=== PATIENT | male | born 1985 | race Caucasian/White ===

== ENCOUNTER 2017-03-12 14:20 | Inpatient (IN) | payer OTHER ==
[~2017-03-12] VITALS: Ht 170.2 cm; Wt 86.2 kg
--- NOTE | 2017-03-12 16:30 | NUR ---
PRE ADMISSION Pt in intake. Pt stated came from rehab center. Pt alert and oriented to name, place, and time. Perrla. Respirations even and unlabored. Bilateral hand tremors noted. Pt appears disheveled. Pt with perspiration noted on head and shoulders are moist. Skin warm and moist to touch. VS wnl except P=118. MD made aware. Pt anxious and not able to sit still, rocking back and forth on chair. Pt with pressured speech noted. Explained unit rules to pt.
--- NOTE | 2017-03-12 16:34 | NUR ---
PRN Pt with ciwa=12. Pt observed sweating, mostlly on head and upper torso. Pt skin moist. Pt very restless , not able to stand still. Valium po prn per MD order given and tolerated well.
--- NOTE | 2017-03-12 16:34 | NUR ---
ADMISSION Pt in intake. Pt stated came from rehab center. Pt alert and oriented to name, place, and time. Perrla. Respirations even and unlabored. Bilateral hand tremors noted. Pt appears disheveled. Pt with perspiration noted on head and shoulders are moist. Skin warm and moist to touch. VS wnl except P=118. MD made aware. Pt anxious and not able to sit still, rocking back and forth on chair. Pt with pressured speech noted. Explained unit rules to pt. Pt states has had history of sz. Oriented pt to unit and room. Pt with allergies to Clindamycin, and morphine. Full code. Regular diet. cows=10 ciws=12. Pt was seen by MD. substance history: -percocet po 10/325mg bid x 1.5 years; last used 03/12/17 10/325mg -xanax po 4-6mg daily x12 years; last used 03/12/17 2mg - methamphetamine snorts 8 ball x2 daily x4 months; last used 03/12/17 half of 8 ball treatment hx - [facility] [place] - 3 weeks ago ( admitted for 3 days) - mery veliz 11/2016 medical : htn , copd, sz Addendum: 03/13/17 at 0804 by EDWINA ROBLES RN additional Skin clear.
--- NOTE | 2017-03-12 16:35 | NUR ---
PRN Pt very restless and anxious. Catapres po prn per MD order given and tolerated well.
[2017-03-12] MEDS ORDERED: SULF1TAB48 PO (17:04)
[2017-03-12] MEDS ORDERED: BECL8.7H NS (17:04)
[2017-03-12] MEDS ORDERED: GABA400C PO (17:04)
[2017-03-12] MEDS ORDERED: LORA-259 PO (17:04)
[2017-03-12] MEDS ORDERED: QUET200T PO (17:04)
[2017-03-12] MEDS ORDERED: DEXT-150 PO (17:04)
[2017-03-12] MEDS ORDERED: HYDR-3026 PO (17:09)
[2017-03-12] MEDS ORDERED: PROP20TA7 PO (17:09)
[2017-03-12] MEDS ORDERED: TOPI25TA PO (17:09)
[2017-03-12 17:32] LABS: *AMPHETAMINE, URINE POSITIVE (NEGATIVE); *BARBITURATE, URINE POSITIVE (NEGATIVE); *CANNABINOID, URINE NEGATIVE (NEGATIVE); *COCCAINE, URINE NEGATIVE (NEGATIVE); *OPIATE, URINE NEGATIVE (NEGATIVE); *PHENCYCLIDINE SCREEN,URINE NEGATIVE (NEGATIVE)
--- NOTE | 2017-03-12 17:35 | NUR ---
PRN EVAL Ciwa=7. Pt more redirectable and follows commands. Pt still slightly anxious. No distress noted at this time.
--- NOTE | 2017-03-12 19:15 | NUR ---
Start of shift note Received report from day shift nurse. Pt is a 31 yo male, A+Ox4, presenting to [facility] for Opiate/Benzo/Meth dependence. Pt has Allergies to Clindamycin and Morphine, is on Full Code status, and on Regular diet. Pt is on 5 day Ativan taper, tolerated well. No s/s of distress noted at this time. Respirations even and unlabored. Will continue to monitor.
[2017-03-12 19:58] LABS: BASOPHILS # (AUTO) 0.1 K/uL (0.0-8.0); BASOPHILS % (AUTO) 0.9 % (0.0-2.0); EOSINOPHILS # (AUTO) 0.4 K/uL (0.0-0.7); HEMATOCRIT 45.6 % (40-50); HEMOGLOBIN 15.1 G/DL (14.0-18.0); LYMPHOCYTES # (AUTO) 2.9 K/UL (0.8-4.8); LYMPHOCYTES % (AUTO) 34.6 % (20.5-51.5); MEAN CORPUSCULAR HEMOGLOBIN 29.3 UUG (27.0-31.0); MEAN CORPUSCULAR HGB CONC 33 g/dL (32.0-37.0); MEAN CORPUSCULAR VOLUME 88.1 FL (82.0-92.0); MONOCYTES # (AUTO) 0.7 K/UL (0.1-1.30); MONOCYTES % (AUTO) 8.5 % (0.0-11.0); NEUTROPHILS # (AUTO) 4.2 K/UL (1.8-8.9); PLATELET COUNT (AUTO) 274 K/UL (150-450); RED BLOOD CELL COUNT(AUTO) 5.17 MIL/UL (4.7-6.1); WHITE BLOOD COUNT (AUTO) 8.3 K/UL (4.0-11.2)
[2017-03-12 20:07] LABS: ETHANOL < 3 MG/DL (0-0)
[2017-03-12 20:11] VITALS: BP 110/62
[2017-03-12 20:11] LABS: ALANINE AMINOTRANSFERASE 22 U/L (16-63); ALKALINE PHOSPHATASE 95 U/L (50-136); ASPARTATE AMINOTRANSFERASE 14 U/L (15-37); BILIRUBIN,TOTAL 0.3 mg/dL (0.2-1.0); CARBON DIOXIDE 27 mmol/L (21-32); CHLORIDE 105 mmol/L (98-107); CREATININE 1.4 mg/dL (0.6-1.3); GLUCOSE 140 mg/dL (74-106); MAGNESIUM 2.4 mg/dL (1.8-2.4); POTASSIUM 3.4 mmol/L (3.5-5.1); TOTAL PROTEIN, SERUM 7.7 g/dL (6.4-8.2); UREA NITROGEN, BLOOD 16 mg/dL (7-18)
[2017-03-13 00:19] VITALS: BP 122/79
[2017-03-13 04:46] VITALS: BP 119/77
--- NOTE | 2017-03-13 06:51 | NUR ---
End of shift note Pt is a 31 yo male, A+Ox4, presenting to [facility] for Opiate/Benzo/Meth dependence. Pt has Allergies to Clindamycin and Morphine, is on Full Code status, and on Regular diet. Pt has HX of HTN, Seizure, and COPD. Pt is on 5 day Ativan taper, tolerated well. Pt slept for a total of 11 HRS. Last COWS: 4 and Last CIWA: 3 @0400. No s/s of distress noted at this time. Respirations even and unlabored. Will endorse to day shift nurse.
--- NOTE | 2017-03-13 07:15 | NUR ---
Start of Shift Endorsement received from nightshift nurse. Pt is a 31 y/o male admitted for Percocet, Xanax and meth dependence. Pt has been placed on a 5 day Ativan taper and PRN Subutex taper. Pt reports Hx of seizures. Pt is tolerating the taper AEB COWS 4, CIWA 3 at 0400. Pt did not receive any PRN medications during caustic cresylate shift superintendent. Pt reports sleeping 11 hours and feels very rested. PT is alert and oriented x4. Pt is in STABLE condition at this time. Remains compliant with medication and diet regimen. All needs have been met, All safety measures in place per hospital policy. Bed in lowest position, side rails up x2, call-light within reach. Will continue to monitor
[2017-03-13 08:00] VITALS: BP 95/59
[2017-03-13 12:00] VITALS: BP 117/66
[2017-03-13 16:00] VITALS: BP 114/61
--- NOTE | 2017-03-13 19:30 | NUR ---
End of Shift Endorsement given to nightshift nurse. Pt is a 31 y/o male admitted for Percocet, Xanax and meth dependence. Pt has been placed on a 5 day Ativan taper and PRN Subutex taper. Pt reports Hx of seizures. Pt is tolerating the taper and moderately withdrawing AEB COWS 6, CIWA 9 at 1600. Pt did not receive any PRN medications during manager night. Pt did receive and one time dose of Zyprexa 5mg per Dr. Ybarra and one time dose of Ativan 2mg per Dr. Goodwin for severe anxiety and agitation. Pt did not participate in groups or activities. Pt has been placed on 1:1 due to increased agitation and safety reasons. Educated pt on diet regimen and encouraged pt to drink more fluids. Intake: 1355ml, Void x1, BM x0. PT is alert and oriented x4. Pt is in STABLE condition at this time. Remains compliant with medication and diet regimen. All needs have been met, All safety measures in place per hospital policy. Bed in lowest position, side rails up x2, call-light within reach. Will continue to monitor
--- NOTE | 2017-03-13 19:31 | NUR ---
Start of shift note Received report from day shift nurse. Pt is a 31 yo amle, A+OX4, presenting to [facility] for Opiate/Benzo/Methamphetamine dependence. Pt has Allergies to Clindamycin and Morphine. Pt is on 1:1 sitter for behavior/safety. Pt is on Fall and Seizure precautions. Pt has HX of HTN, and Seizure, and COPD. Pt is on 5 day Ativan taper, tolerated well. No s/s of distress noted at this time. Respirations even and unlabored. Will continue to monitor.
[2017-03-13 20:08] VITALS: BP 108/72
--- NOTE | 2017-03-13 21:18 | NUR ---
PRN Subutex 4mg Pt noted with COWS: 12. PRN Subutex given and tolerated well. Will reassess within 30 minutes. Will continue to monitor.
--- NOTE | 2017-03-13 21:37 | NUR ---
MD Communication: Dr Goodwin made aware that patient has been pacing the unit, non-compliant with room restriction, and noted to be agitated. Pt verbalizing wanting to leave AMA. Order received for Ativan 2mg PO x1. Order noted, repeated, and carried out.
--- NOTE | 2017-03-13 21:45 | NUR ---
PRN Subutex 4mg Reassessment Medication effective. COWS: 7. No ss/s of ASE/distress noted at this time. Respirations even and unlabored. Will continue to monitor.
--- NOTE | 2017-03-13 23:15 | NUR ---
MD Communication: Pt continues to display agitated behavior, noted to be pacing hallways and non-compliant with room restriction. upon assessment in patient's room, pt unable to sit still on bed and is labile with tangential thoughts. Dr Ybarra contacted and new order received for Haldol 5mg IM, Ativan 2mg IM, and Benadryl 50mg IM. Order noted, repeated and carried out.
[2017-03-14 00:16] VITALS: BP 102/64
[2017-03-14 04:43] VITALS: BP 101/62
--- NOTE | 2017-03-14 07:00 | NUR ---
End of shift note Pt is a 31 yo male, A+Ox4, presenting to [facility] for Opiate/Benzo/Meth dependence. Pt has Allergies to Clindamycin and Morphine, is on Full Code status, and on Regular diet. Pt has HX of HTN, Seizure, and COPD. Pt is on 5 day Ativan taper, tolerated well. Pt was given PRN Subutex 4mg @2118. Pt slept for a total of 7 HRS. Last COWS: 3 and Last CIWA: 3 @0400. No s/s of distress noted at this time. Respirations even and unlabored. Will endorse to day shift nurse.
--- NOTE | 2017-03-14 07:25 | NUR ---
Start of Shift Superintendent [employer] received report on 31 year old male admitted on 03/12/17 for Opiate, Benzodiazepine and Methamphetamine detoxification. Pt reports an allergy to Clinidmycin and Morphine. Pt eats a regular diet and is a full code. PMH of HTN, COPD, and a drug induced seizure 3 weeks ago. Pt is currently on a 5 day Ativan taper, with a Subutex taper to begin today, per report. Last COWS 3, CIWA 3 at 0400. Pt received Subutex PRN, as well as, OT orders of Ativan and Haldol(IM). Superintendent [employer] encounters pt in his room having blood drawn. Pt is cooperative. A/O x4 and able to make needs known. Remains on 1:1 staffing d/t irritability and aggression yesterday. Bed in low position, wheels locked, side rails up x2 and call light within reach.
--- NOTE | 2017-03-14 07:50 | NUR ---
NOC IM Non-Administration Per report, nurse received orders for medication and administered Haldol IM, pt slept and the Ativan and Benadryl were help d/t sedation.
[2017-03-14 08:06] VITALS: BP 106/74
[2017-03-14 08:08] LABS: HEPATITIS B SURFACE AG Negative (Negative)
[2017-03-14 08:14] LABS: CREATININE 0.9 mg/dL (0.6-1.3); MAGNESIUM 2.1 mg/dL (1.8-2.4); POTASSIUM 3.4 mmol/L (3.5-5.1)
[2017-03-14 12:55] VITALS: BP 99/61
--- NOTE | 2017-03-14 16:40 | NUR ---
MD Communication/1500 Meds Held Pt's scheduled 1500 medication held and not administered due to sedation. Pt has been somnolent with no complaints. Dr. Goodwin made aware.
[2017-03-14 16:55] VITALS: BP 113/79
--- NOTE | 2017-03-14 17:37 | NUR ---
OT Order - Ativan, Subutex ordered OT administration of Subutex to cover pt's held 1500 dose. Pt complains of increased anxiety due to the "aggressive" nature of the detoxification protocol. MD ordered 1mg additional to help with increased anxiety. Emergency Department Rn administered per MD order and pt tolerated well. Will continue to monitor, support and encourage according to plan of care.
--- NOTE | 2017-03-14 18:07 | NUR ---
OT Subutex Re-assessment Pt states he has less body aches. Pt is social and visible on the unit. Pt with no further complaints or concerns. Will continue to monitor, support and encourage according to plan of care.
--- NOTE | 2017-03-14 18:37 | NUR ---
OT Ativan Re-assessment Pt socializing with peers with no complaints voiced. Anxiety decreased, medication effective. Will continue to monitor, support and encourage according to plan of care.
--- NOTE | 2017-03-14 18:50 | NUR ---
End of Shift Motor Assembly Supervisor provided report on 31 year old male admitted on 03/12/17 for Opiate, Benzodiazepine and Methamphetamine detoxification. Pt reports an allergy to Clinidmycin and Morphine. Pt eats a regular diet and is a full code. PMH of HTN, COPD, and a drug induced seizure 3 weeks ago. Pt is currently on a 5 day Ativan taper and a Subutex taper. Last COWS 6, CIWA 5 at 1600. Pt received OT orders of Ativan ( 1mg ) and Subutex ( 4mg ). Pt has rested most of the day, lethargic at times, somnolent. Pt is cooperative. A/O x4 and able to make needs known. Bed in low position, wheels locked, side rails up x2 and call light within reach.
--- NOTE | 2017-03-14 19:55 | NUR ---
Start of shift: Received patient resting in bed. 31 yo male,presenting to [facility] for Opiate/Benzo/Methamphetamine dependence. Pt is alert,oriented x4. Afebrile and vital signs are stable except pulse is elevated @ 109 bpm. No c/o chest pain or pressure at this time. No signs of acute resp distress. Patient is on a Subutex/Ativan taper and tolerating well. No other concerns at this time. Will continue with current plan of care. Safety, seizure and fall precaution in progress. Bed is in the lowest position, side rails are up and call light within reach. Will continue to monitor.
[2017-03-14 20:14] VITALS: BP 122/85
[2017-03-15 04:32] VITALS: BP 102/62
--- NOTE | 2017-03-15 06:38 | NUR ---
End of shift Pt is a 31 yo male, A+Ox4, Patient admitted to [facility] for Opiate/Benzo/Meth dependence. Afebrile and vital signs are stable. Patient has been on Ativan/Subutex taper and tolerating well. Pt slept for a total of 5hrs and 45 minutes. Last COWS: 4 and Last CIWA: 3 @0400. No other concerns at this time All needs were met. Safety precaution maintained. No signs of distress noted at this time. Will endorse to oncoming shift to follow up care.
--- NOTE | 2017-03-15 07:25 | NUR ---
Start of Shift Habitat Conservation Planner received report on 31 year old male admitted on 03/12/17 for Opiate, Benzodiazepine and Methamphetamine detoxification. Pt reports an allergy to Clinidmycin and Morphine. Pt eats a regular diet and is a full code. PMH of HTN, COPD, and a drug induced seizure 3 weeks ago. Pt is currently on a 5 day Ativan and Subutex taper, tolerating well. Last COWS 4, CIWA 3 at 0400. Habitat Conservation Planner encounters pt in his room . Pt is cooperative. A/O x4 and able to make needs known. Pt has a flat affect and congruent mood.Bed in low position, wheels locked, side rails up x2 and call light within reach.
[2017-03-15 08:36] VITALS: BP 116/79
--- NOTE | 2017-03-15 10:58 | NUR ---
Therapist prompted client about group times. Client stated he would try to attend all groups.
[2017-03-15 12:30] VITALS: BP 122/71
[2017-03-15 16:30] VITALS: BP 115/72
--- NOTE | 2017-03-15 18:45 | NUR ---
End of Shift Trucking Supervisor provided report on 31 year old male admitted on 03/12/17 for Opiate, Benzodiazepine and Methamphetamine detoxification. Pt reports an allergy to Clinidmycin and Morphine. Pt eats a regular diet and is a full code. PMH of HTN, COPD, and a drug induced seizure 3 weeks ago. Pt is currently on a 5 day Ativan and Subutex taper, tolerating well. Last COWS 2, CIWA 2 at 1600. Pt is cooperative. A/O x4 and able to make needs known. Pt has a flat affect and congruent mood. Bed in low position, wheels locked, side rails up x2 and call light within reach.
--- NOTE | 2017-03-15 19:15 | NUR ---
Start of Shift Note: Patient is a 31 y/o male admitted on 03/12/17 for Opiate and Benzo dependence. Patient. PMHx: HTN, COPD and Seizure d/t withdrawal (3 weeks ago). Patient is on a regular diet with allergies to Clindamycin and Morphine. Full Code status. Pt is on a Ativan and Subutex taper and tolerating well. Last COWS 2 CIWA 2 noted. No PRN medications given during day shift. Patient is stable and vitals remains WNL. Patient is alert & oriented x4. No shortness of breath noted. Respiration even & unlabored. Abdomen soft & non-distended. No nausea/vomiting noted. Patient complains of 6/10 body aches. , sweating & chills. Patient denies any hallucinations. Patient appears calm and collected. Safety measures in place. Bed locked in lowest position. Both side rails up. Call light within pt's reach. Will continue to monitor patient.
[2017-03-15 20:00] VITALS: BP 113/71
--- NOTE | 2017-03-16 07:16 | NUR ---
End of Shift Note: Pt had an uneventful night. Pt continues on his Subutex and Ativan taper and he is tolerating well. Last COWS 4 CIWA 1. No PRN medications were given. Pt is alert & oriented x4. Pt remained stable and vitals remains WNL. Pt remained compliant with medications and treatment. All needs have been met. All safety measures in place per hospital policy. Bed in lowest position, side rails up x2, call-light within reach. Pt slept for a total of 7 hours. Pt consumed 1500 ml of fluids. Voided 2x with 1x bowel movement. All needs attended & met. Safety measures in place. Will continue to monitor patient.
--- NOTE | 2017-03-16 07:20 | NUR ---
Start of Shift Billet Checker received report on 31 year old male admitted on 03/12/17 for Opiate, Benzodiazepine and Methamphetamine detoxification. Pt reports an allergy to Clinidmycin and Morphine. Pt eats a regular diet and is a full code. PMH of HTN, COPD, and a drug induced seizure 3 weeks ago. Pt is currently on a 5 day Ativan and Subutex taper, tolerating well. Last COWS 4, CIWA 1 recorded by night nurse.. Billet Checker encounters pt in his room . Billet Checker encounters pt in room resting with eyes closed. Respiration even and unlabored, rise and fall of chest noted Bed in low position, wheels locked, side rails up x2 and call light within reach.
[2017-03-16 08:43] VITALS: BP 120/74
[2017-03-16 12:20] VITALS: BP 120/72
[2017-03-16 16:30] VITALS: BP 117/79
--- NOTE | 2017-03-16 18:52 | NUR ---
End of Shift Urology Teacher provided report on 31 year old male admitted on 03/12/17 for Opiate, Benzodiazepine and Methamphetamine detoxification. Pt reports an allergy to Clinidmycin and Morphine. Pt eats a regular diet and is a full code. PMH of HTN, COPD, and a drug induced seizure 3 weeks ago. Pt is currently on a 5 day Ativan and Subutex taper, tolerating well. Last COWS 3, CIWA 0 recorded at 1600.Pt is calm and cooperative and able to make his needs known. A/O x4. Pt has been somnolent and lethargic at times. Bed in low position, wheels locked, side rails up x2 and call light within reach.
--- NOTE | 2017-03-16 19:15 | NUR ---
Start of Shift Note: Patient is a 31 y/o male admitted on 03/12/17 for Opiate and Benzo dependence. Patient. PMHx: HTN, COPD and Seizure d/t withdrawal (3 weeks ago). Patient is on a regular diet with allergies to Clindamycin and Morphine. Full Code status. Pt is on a Ativan and Subutex taper and tolerating well. Last COWS 3 CIWA 0 noted. No PRN medications given during day shift. Patient is stable and vitals remains WNL. Patient is alert & oriented x4. No shortness of breath noted. Respiration even & unlabored. Abdomen soft & non-distended. No nausea/vomiting noted. Patient complains 8/10 generalized body aches, sweating & chills. Patient denies any hallucinations. No hand tremors noted. Patient appears calm and collected. Safety measures in place. Bed locked in lowest position. Both side rails up. Call light within pt's reach. Will continue to monitor patient.
[2017-03-16 20:00] VITALS: BP 123/70
[2017-03-17] VITALS: BP 118/76
--- NOTE | 2017-03-17 07:23 | NUR ---
End of Shift Note: Pt had an uneventful night. Pt continues on his Subutex and Ativan taper and he is tolerating well. Last COWS 4 CIWA 1. No PRN medications were given. Pt is alert & oriented x4. Pt remained stable and vitals remains WNL. Pt remained compliant with medications and treatment. All needs have been met. All safety measures in place per hospital policy. Bed in lowest position, side rails up x2, call-light within reach. Pt slept for a total of 9 hours. Pt consumed 1180 ml of fluids. Voided 2x with no bowel movement. All needs attended & met. Safety measures in place. Will continue to monitor patient.
[2017-03-17 08:00] VITALS: BP 114/65
--- NOTE | 2017-03-17 08:10 | NUR ---
START OF SHIFT: RECEIVED PT A/O X 4. HE PRESENTS WITH FLAT AFFECT AND DEPRESSED MOOD. HE DENIE S/I AND H/I. POOR EYE CONTACT NOTED. COWS 4 CIWA 3. ATIVAN COMPLETED. SUBUTEX TAPER IN PROGRESS.HE C/O BODY ACHES AND ANXIETY. MEDICATED ORDERED. ENCOURAGED GROUP ATTENDANCE TO IMPROVE COPING SKILLS AND PREVENT RELAPSE. WILL CONTINUE TO MONITOR AND OFFER SUPPORT.
[2017-03-17 12:00] VITALS: BP 116/79
[2017-03-17] MEDS ORDERED: PRAZ1CAP2 PO ×2 (15:37)
[2017-03-17] MEDS ORDERED: DIPH50CA37 PO (15:37)
[2017-03-17] MEDS ORDERED: TOPI100T PO (15:37)
[2017-03-17] MEDS ORDERED: IBUP-1955 PO (15:37)
[2017-03-17] MEDS ORDERED: PANT40TA2 PO (15:37)
[2017-03-17] MEDS ORDERED: GABA-536 PO (15:37)
[2017-03-17] MEDS ORDERED: TOPI25TA PO (15:37)
[2017-03-17] MEDS ORDERED: DICY20TA28 PO (15:37)
[2017-03-17] MEDS ORDERED: QUET200T PO ×2 (15:37)
[2017-03-17] MEDS ORDERED: OLAN5TAB6 PO (15:37)
[2017-03-17] MEDS ORDERED: HYDR-3895 PO (15:37)
[2017-03-17] MEDS ORDERED: BACL20TA PO (15:37)
[2017-03-17 16:41] VITALS: BP 127/72
--- NOTE | 2017-03-17 16:43 | NUR ---
Late administration Pt requested medications to be administered late.
--- NOTE | 2017-03-17 18:33 | NUR ---
END OF SHIFT: PT COMPLETED ATIVAN/SUBUTEX TAPER. HE CONTINUES TO PRESENT WITH BLUNTED AFFECT. HE DENIES S/I AND H/I. HE IS SCHEDULED FOR DISCHARGE TO RTC ON 03/18. PT STATES HE IS A BIT ANXIOUS ABOUT GOING FAR AWAY FROM HIS DAUGHTER BUT KNOWS HE NEEDS THE HELP TO STAY CLEAN. NO PRNS GIVEN ON THIS SHIFT. HE WAS COMPLIANT WITH GROUPS AND INTERACTED WITH PEERS. WILL PASS SHIFT REPORT TO ONCOMING NIGHT NURSE.
--- NOTE | 2017-03-17 19:15 | NUR ---
Start of Shift Note: Patient is a 31 y/o male admitted on 03/12/17 for Opiate and Benzo dependence. Patient. PMHx: HTN, COPD and Seizure d/t withdrawal (3 weeks ago). Patient is on a regular diet with allergies to Clindamycin and Morphine. Full Code status. Pt completed his Ativan and Subutex taper and he is scheduled to be discharge tomorrow. Last COWS 4 CIWA 2 noted. No PRN medications given during day shift. Patient is stable and vitals remains WNL. Patient is alert & oriented x4. No shortness of breath noted. Respiration even & unlabored. Abdomen soft & non-distended. No nausea/vomiting noted. Patient complains 5/10 generalized body aches, sweating & chills. Patient denies any hallucinations. No hand tremors noted. Patient lying in bed and appears calm with no s/s of distress noted. Safety measures in place. Bed locked in lowest position. Both side rails up. Call light within pt's reach. Will continue to monitor patient.
[2017-03-17 20:00] VITALS: BP 106/73
[2017-03-18] VITALS: BP 121/76
--- NOTE | 2017-03-18 07:23 | NUR ---
End of Shift Note: Pt had an uneventful night. Pt completed his Subutex and Ativan taper and he is scheduled to be discharge today. Last COWS 3 CIWA 1. No PRN medications were given. Pt is alert & oriented x4. Pt remained stable and vitals remains WNL. Pt remained compliant with medications and treatment. Pt slept for a total of 7 hours. Pt consumed 1900 ml of fluids. Voided 3x with 1x bowel movement. All needs have been met. All safety measures in place per hospital policy. Bed in lowest position, side rails up x2, call-light within reach. Will continue to monitor.
--- NOTE | 2017-03-18 07:30 | NUR ---
Start Of Shift Received report; Patient is a 31 y/o male admitted on 03/12/17 for Opiate and Benzo dependence. Patient is full code on a regular diet with allergies to Clindamycin and Morphine. Continues on fall and seizure precautions. PMHx: HTN, COPD and Seizure d/t withdrawal (3 weeks ago). Pt completed his Ativan and Subutex tapers tolerated well, pt is scheduled to be discharge today. Last COWS 3 CIWA 1 taken at 0000. Pt did not receive any PRN medications last night. Patient is alert & oriented x4. Fluids encouraged to help facilitate detox process. Patient lying in bed and appears calm with no s/s of distress noted. Safety measures in place. Bed locked in lowest position. Both side rails up. Call light within pt's reach. Will continue to monitor patient.
[2017-03-18 08:00] VITALS: BP 133/80
[2017-03-18 09:03] VITALS: BP 133/80
--- NOTE | 2017-03-18 09:50 | NUR ---
DISCHARGE NOTE Pt is in stable condition. Vitals WNL, Pt alert and oriented x4, skin intact, Pt denies any SI/HI. All discharge paperwork completed dated and signed. Pt educated about discharge instructions, what to do after discharge when to contact MD as well as the s/s reportable to MD, pt verbalized understanding. Pt was provided with all of his discharge paperwork. Pt's last COWS:3 and CIWA:1 taken at 0800. Pt was discharged from [facility] on 03/18/17 at 0940. Pt left the building with all of his belongings, prescriptions and medications. MD and psychiatrist have been contacted notified and aware of pt's d/c.
== END 2017-03-18 09:40 | disposition other institution (70) | DRG 895 ==
LOC: SRC 15:16
PROVIDERS: ADMIT Internal Medicine; ATTEND Internal Medicine
PROC: HZ2ZZZZ Detoxification Services for Substance Abuse Treatment (ICD-10-PCS; principal; 2017-03-12)
PROC: HZ41ZZZ Group Counseling for Substance Abuse Treatment, Behavioral (ICD-10-PCS; 2017-03-14)
PROC: HZ31ZZZ Individual Counseling for Substance Abuse Treatment, Behavioral (ICD-10-PCS; 2017-03-15)
DX: F13.239 Sedative, hypnotic or anxiolytic dependence with withdrawal, unspecified (principal); N17.9 Acute kidney failure, unspecified; F15.221 Other stimulant dependence with intoxication delirium; F31.60 Bipolar disorder, current episode mixed, unspecified; L02.512 Cutaneous abscess of left hand; L02.413 Cutaneous abscess of right upper limb; F41.0 Panic disorder [episodic paroxysmal anxiety]; Z91.89 Other specified personal risk factors, not elsewhere classified; Z83.3 Family history of diabetes mellitus; Z81.1 Family history of alcohol abuse and dependence; Z59.1 Inadequate housing; Z81.8 Family history of other mental and behavioral disorders; F17.210 Nicotine dependence, cigarettes, uncomplicated; N14.1 Nephropathy induced by other drugs, medicaments and biological substances; E86.9 Volume depletion, unspecified; Z79.899 Other long term (current) drug therapy
CPT/HCPCS: 36415; 70030-TC; 80307; 80324; 80345; 83735; 85025; 86592; 86705; 86803; 87340; 87806; A4663; G0480; J1630

== ENCOUNTER 2017-05-27 16:40 | Inpatient (IN) | payer OTHER ==
[~2017-05-27] VITALS: Ht 170.2 cm; Wt 86.2 kg
[~2017-05-27 16:40] MED LIST: BACL20TA PO; BECL8.7H NS; DICY20TA28 PO; DIPH50CA37 PO; GABA-536 PO; HYDR-3895 PO; IBUP-1955 PO; OLAN5TAB6 PO; PANT40TA2 PO; PRAZ1CAP2 PO; QUET200T PO; SULF1TAB48 PO; TOPI100T PO; TOPI25TA PO
--- NOTE | 2017-05-27 19:50 | NUR ---
PRE-ADMISSION NOTE Patient is a 31-year-old male seen at intake, AAOx4, no SOB with moderate anxiety noted at this time. Patient is restless and jittery, and reports generalized body aches, mainly his back and legs. SN discussed with patient the admission policies of the unit. Patient is coherent and able to respond to questions appropriately. Patient is ambulatory with steady gait. Vital signs taken and as follows: BP: 127/72, P: 135, R: 18, O2: 97%, T: 97.9, Pain: 8/10. Patient verbalized understanding of instructions and teachings regarding disposal of narcotic and other controlled home medications, unit protocols such as taking of vital signs Q4H and handling and disposal of contraband. Will continue with admission upon patient's arrival on the unit.
[2017-05-27 20:00] VITALS: BP 127/72
[2017-05-27] MEDS ORDERED: BUPRENORPHINE HCL 2 MG TAB.SUBL SL PRN (20:15)
[2017-05-27] MEDS ORDERED: DICYCLOMINE HCL 20 MG TABLET PO PRN (20:15)
[2017-05-27] MEDS ORDERED: LOPERAMIDE HCL 2 MG CAPSULE PO PRN ×2 (20:15)
[2017-05-27] MEDS ORDERED: LORAZEPAM 1 MG TABLET PO PRN ×2 (20:15)
[2017-05-27] MEDS ORDERED: ONDANSETRON 4 MG/2 ML VIAL IM PRN (20:15)
[2017-05-27] MEDS ORDERED: MAGNESIUM HYDROXIDE 30 ML LIQUID UDC PO PRN (20:15)
[2017-05-27] MEDS ORDERED: diphenhydrAMINE 50 MG CAPSULE PO PRN (20:15)
[2017-05-27] MEDS ORDERED: LORAZEPAM 2 MG/1 ML VIAL IM PRN (20:15)
[2017-05-27] MEDS: GABAPENTIN 300 MG CAPSULE PO SCH (20:51)
[2017-05-27] MEDS: PRAZOSIN HCL 1 MG CAPSULE PO SCH (20:52)
[2017-05-27] MEDS: TOPIRAMATE 25 MG TABLET PO SCH (20:52)
[2017-05-27] MEDS: IBUPROFEN 600 MG TABLET PO PRN (20:52)
[2017-05-27] MEDS ORDERED: LORAZEPAM 1 MG TABLET PO SCH (21:00)
[2017-05-27] MEDS ORDERED: BUPRENORPHINE HCL 2 MG TAB.SUBL SL SCH (21:00)
[2017-05-27 21:43] LABS: *AMPHETAMINE, URINE NEGATIVE (NEGATIVE); *BARBITURATE, URINE NEGATIVE (NEGATIVE); *CANNABINOID, URINE NEGATIVE (NEGATIVE); *COCCAINE, URINE NEGATIVE (NEGATIVE); *OPIATE, URINE NEGATIVE (NEGATIVE); *PHENCYCLIDINE SCREEN,URINE NEGATIVE (NEGATIVE)
--- NOTE | 2017-05-27 22:45 | NUR ---
ADMISSION NOTE Patient is a 31-year-old male admitted on 05/27/17 for heroin and benzo dependence, arrived on the unit at 2006. Patient is allergic to morphine sulfate and clindamycin, patient reports history of seizures, last one was 4 months ago. Patient was able to provide UDS at intake. Upon admission CIWA 17 and COWS 17, Vital signs as follows: BP: 127/72, P: 135, R: 18, O2: 97%, T: 97.9, Pain: 8/10. Weight 190 lbs., height 57. Patient reports he has a PCP. Patient smokes about 1 pack of cigarettes daily, and was recently hospitalized at [facility], including 5150 hold for drug induced psychosis. Pt is able to understand and respond to all questions pertaining to his hospitalization. Substance Abuse History is as follows: 1. Heroin 3 grams daily IV, at current rate for last 3 weeks. Last intake of 1 gram was 05/26/17. 2. Ativan 8mg daily PO, at current rate for last 3 weeks. Last intake was 05/27/17, just prior to admission, of 2mg. 3. Methamphetamine, IV and snort/inhalation, unspecified amounts for 3 weeks. Last intake of 2 grams via inhalation on 05/25/17. Patients longest sober period for 5 years and ended last year when his then filed for divorce. Since his relapse, the patient has been in and out of treatment this year approximately 4 times, per patient. One of the treatments was at [facility], in March of 2017. PMH: Anxiety, depression, PTSD, panic disorder, bipolar disorder, insomnia, asthma, stomach ulcers, and history of seizures related to withdrawal. Patients surgical history includes right wrist surgery and a rhinoplasty. Patient did bring some home meds, they have been reconciled. Upon assessment, pt is AAOx4, patient is anxious and restless, mildly diaphoretic, complaining of chills. Patients skin is flushed, slightly moist, and intact. Patients respirations are unlabored, no signs of SOB or respiratory distress at this time. Patient denies chest pain. Patient reports he had a bowel movement a couple hours ago. Bowel sounds are normoactive x 4 quadrants, abdomen soft and non-tender. PERRLA. Patient denies SI/HI. Educational information provided and left at bedside. Pt oriented to room and unit and encouraged to notify staff with any concerns. Safety measures in place. Call light within reach, side rails up x 2, bed locked and in low position. Will continue to monitor.
[2017-05-27 23:26] LABS: BASOPHILS # (AUTO) 0.1 K/uL (0.0-8.0); BASOPHILS % (AUTO) 0.6 % (0.0-2.0); EOSINOPHILS # (AUTO) 0.2 K/uL (0.0-0.7); EOSINOPHILS % (AUTO) 2.1 % (0.0-7.0); HEMATOCRIT 45.3 % (36.7-47.1); HEMOGLOBIN 15.8 g/dL (12.5-16.3); LYMPHOCYTES # (AUTO) 2.5 K/uL (20.0-40.0); LYMPHOCYTES % (AUTO) 26.3 % (20.5-51.5); MEAN CORPUSCULAR HEMOGLOBIN 31.4 uug (23.8-33.4); MEAN CORPUSCULAR HGB CONC 35 g/dL (32.5-36.3); MEAN CORPUSCULAR VOLUME 89.9 fL (73.0-96.2); MONOCYTES # (AUTO) 0.5 K/uL (2.0-10.0); MONOCYTES % (AUTO) 4.7 % (0.0-11.0); NEUTROPHILS # (AUTO) 6.3 K/uL (1.8-8.9); NEUTROPHILS % (AUTO) 66.3 % (38.5-71.5); PLATELET COUNT (AUTO) 173 K/uL (152-348); RED BLOOD CELL COUNT(AUTO) 5.03 MIL/uL (4.06-5.63); WHITE BLOOD COUNT (AUTO) 9.5 K/uL (3.6-10.2)
[2017-05-27 23:40] LABS: ALANINE AMINOTRANSFERASE 18 U/L (16-63); ALKALINE PHOSPHATASE 103 U/L (50-136); ASPARTATE AMINOTRANSFERASE 13 U/L (15-37); BILIRUBIN,TOTAL 0.2 mg/dL (0.2-1.0); CARBON DIOXIDE 26 mmol/L (21-32); CHLORIDE 101 mmol/L (98-107); CREATININE 1.2 mg/dL (0.6-1.3); GLUCOSE 178 mg/dL (74-106); MAGNESIUM 1.8 mg/dL (1.8-2.4); POTASSIUM 3.1 mmol/L (3.5-5.1); TOTAL PROTEIN, SERUM 7.5 g/dL (6.4-8.2); UREA NITROGEN, BLOOD 14 mg/dL (7-18)
[2017-05-28] VITALS: BP 103/60
--- NOTE | 2017-05-28 | NUR ---
MIDNIGHT COWS AND CIWA DEFERRED Patient's respirations are 16/min, even and unlabored. COWS and CIWA deferred due to patient asleep; to be assessed/scored while patient is awake per unit protocol. Safety measures in place, bed locked in low position, side rails up x2, call light within reach. Will continue to monitor.
[2017-05-28 00:16] LABS: ETHANOL < 3 MG/DL (0-0)
[2017-05-28] MEDS: METHOCARBAMOL 750 MG TABLET PO PRN ×2 (03:54→08:44)
[2017-05-28] MEDS: CLONIDINE HCL 0.1 MG TABLET PO PRN (03:54)
[2017-05-28] MEDS: MAG HYDROX/AL HYDROX/SIMETH 30 ML LIQUID UDC PO PRN (03:54)
--- NOTE | 2017-05-28 03:55 | NUR ---
PRN MEDICATIONS Patient reports chills, anxiety, restlessness, heartburn, inability to sleep, and back pain 9/10. PRN Clonidine, Maalox, Benadryl, and Robaxin given PO. PRN Ativan 1mg given PO for CIWA of 10. Patient's respirations are even and unlabored. Safety measures in place, bed locked in low position, side rails up x2, call light within reach. Will reassess in one hour.
[2017-05-28 04:00] VITALS: BP 124/83
--- NOTE | 2017-05-28 04:55 | NUR ---
PRN MEDICATION REASSESSMENT Patient is resting in bed with eyes closed. Patient's respirations are even and unlabored, no distress noted at this time. PRN medications effective. Unable to obtain post CIWA score at this time due to patient asleep, per unit protocol. Safety measures in place, bed locked in low position, side rails up x2, call light within reach. Will continue to monitor.
[2017-05-28] MEDS ORDERED: BECL8.7H NS (05:31)
[2017-05-28] MEDS ORDERED: QUET200T PO (05:31)
[2017-05-28] MEDS ORDERED: PANT40TA4 PO (05:31)
[2017-05-28] MEDS ORDERED: LORA2TAB PO (05:31)
--- NOTE | 2017-05-28 07:15 | NUR ---
END OF SHIFT Patient is a 31-year-old male admitted on 05/27/17 for heroin, meth, and benzo depenedence. Patients past medical history includes anxiety, depression, panic disorder, bipolar disorder, PTSD, insomnia, stomach ulcers, asthma, and history of seizures. Patients surgical history includes right wrist surgery and rhinoplasty. Patient slept for 6 hours, total intake of 650 mL, void x2, stool x0. Patient received PRN Maalox, Clonidine, Benadryl, Robaxin and Ativan. Last CIWA score 10, last COWS score 15. Safety measures in place, patient's bed is locked in low position, side rails up x2, call light within reach. Will endorse to day shift.
--- NOTE | 2017-05-28 07:34 | NUR ---
Start of Shift Notes: Received patient in his room. Alert and oriented x 4. Verbally responsive. Able to make needs known. Respirations even and unlabored. No SOB noted. Skin warm and dry to touch. Abdomen soft and non-distended with (+) BS in all 4 quadrants. No complains of N/V/D or constipation noted. Bladder non-distended. Voids independently. Patient is a 31 year old male admitted for opiate/BZO/methamphetamine dependence who was placed on a 5-day Ativan and 5-day Subutex taper as ordered. No adverser eactions noted. Has past medical hx of anxiety, depression, PTSD, panic disorder, insomnia, bipolar disorder, stomach ulcers, seizures, asthma and surgeries to right wrist and rhinoplasty. Allergic to morphine, and clindamycin. FULL CODE. Regular diet. On fall and seizure precautions. Educated patient on the current plan of care for the day and his medication regimen. Encouraged oralfluid intake and encouraged group participation to learn new skills to prevent relapse. Will continue to monitor.
[2017-05-28 08:00] VITALS: BP 106/61
[2017-05-28] MEDS: GABAPENTIN 300 MG CAPSULE PO SCH ×3 (08:44→20:54)
[2017-05-28] MEDS: LORAZEPAM 1 MG TABLET PO SCH ×4 (08:44→20:54)
[2017-05-28] MEDS: BUPRENORPHINE HCL 2 MG TAB.SUBL SL SCH ×4 (08:44→20:54)
[2017-05-28] MEDS: TOPIRAMATE 25 MG TABLET PO SCH ×2 (08:44→20:54)
[2017-05-28] MEDS ORDERED: TUBERCULIN,PURIF.PROT.DERIV. 5 TU/0.1 ML TEST ID ONE (09:00)
[2017-05-28 12:00] VITALS: BP 111/64
--- NOTE | 2017-05-28 12:30 | NUR ---
Room Change: Patient's room was changed from 329B to 306. Patient education provided. Room orientation provided. Patient verbalized good understanding.
[2017-05-28] MEDS ORDERED: POTASSIUM CHLORIDE 20 MEQ TAB.PRT.SR PO ONE ×2 (15:00→17:00)
--- NOTE | 2017-05-28 15:59 | NUR ---
Gabapentin at 1500 not administered: Patient observed to be laying in bed with eyes closed. RR 16. Easily arousable. Patient states "I just want to sleep." Gabapentin at 1500 held at this time.
[2017-05-28 16:00] VITALS: BP 124/87
--- NOTE | 2017-05-28 19:01 | NUR ---
End of Shift Notes: Patient continues to be on 5-day Subutex and 5-day Ativan taper as ordered. No adverse reactions. Patient is tolerating taper well. VS monitored closely. No significant abnormalities noted. Withdrawal symptoms were closely monitored. Initial COWS 11/CIWA 9, patient presented with myalgia, tremors, sweating, anxiety, and agitation. Last COWS 5/CIWA 4. Per patient, Subutex and Ativan has been effective in reducing patients withdrawal symptoms. Compliant with care and treatment. All needs met and attended. Will continue to monitor closely.
--- NOTE | 2017-05-28 19:15 | NUR ---
Start of Shift Note: Patient is a 31 y/o male admitted 05/27/17 for Opiate and Benzo dependence. Patient reported using 3grams of heroin daily, Ativan 8mg daily and Unspecified amount of Methamphetamine daily for 3 weeks. Patient has PMHx of Anxiety, Depression, PTSD, Panic disorder, Insomnia, Bipolar disorder, Stomach Ulcers, Asthma and Hx of withdrawal induced seizures. Patient is on a regular diet with allergies to Morphine & Clindamycin with no known food and drug allergies noted. Full Code status. Skin intact. Pateint is on a 5-day Subutex and 5-day Ativan taper and tolerating well. Last COWS 5 CIWA 4. Pt did not received any PRN medications during day shift. Patient alert & oriented x4. No shortness of breath noted. Respiration even & unlabored. Abdomen soft & non-distended. No nausea/vomiting noted. Patient complains of 8/10 generalized body aches, sweating, chills. Slight hand tremors noted. Pt denies any hallucinations. Safety measures in place. Will continue to monitor patient.
[2017-05-28 20:00] VITALS: BP 116/70
[2017-05-28] MEDS ORDERED: BACLOFEN 20 MG TABLET PO PRN (20:15)
[2017-05-28] MEDS: QUETIAPINE FUMARATE 200 MG TABLET PO SCH (20:54)
[2017-05-28] MEDS: PRAZOSIN HCL 1 MG CAPSULE PO SCH (20:54)
--- NOTE | 2017-05-28 20:54 | NUR ---
PRN Baclofen Patient complains of 7/10 generalized body aches. PRN Baclofen administered as ordered. Will monitor for effectiveness of medication.
--- NOTE | 2017-05-28 21:54 | NUR ---
PRN Reassessment Patient asleep in bed at this time and appears comfortable. No facial grimacing noted. Pt stable. Will continue to monitor patient.
[2017-05-29] VITALS: BP 118/73
[2017-05-29 04:00] VITALS: BP 126/72
--- NOTE | 2017-05-29 07:10 | NUR ---
Start of Shift Endorsement received from nightshift nurse. Pt is a 31 y/o male admitted for Heroin, Ativan and meth dependence. Pt has been placed on a 5 day Subutex and 5 day ativan taper. Pt is tolerating both tapers and moderately withdrawing AEB COWS 7, CIWA 3. Pt received PRN Baclofen. Pt reports sleeping 6 hours during the night. VS WNL. Full Code. PT is alert and oriented x4. Pt is in STABLE condition at this time. Remains compliant with medication and diet regimen. All needs have been met, All safety measures in place per hospital policy. Bed in lowest position, side rails up x2, call-light within reach. Will continue to monitor
--- NOTE | 2017-05-29 07:11 | NUR ---
End of Shift Note: Pt had an uneventful night. Pateint remained stable and compliant with medications and treatment plan. Vitals remains WNL. Pt continues on his Ativan and Subutex taper and tolerating well. No adverse reactions noted. Taper medications effective in reducing symtoms of withdrawal. Last COWS 5 CIWA 4 noted. Pt received PRN Baclofen for bodyaches and was effective. Patient slept for a total of 6 hours. Fluid intake 1715ml. Voided 3x with no bowel movement. All needs attended & met. Safety measures in place. Will continue to monitor patient.
[2017-05-29 08:00] VITALS: BP 104/61
[2017-05-29] MEDS: GABAPENTIN 300 MG CAPSULE PO SCH ×3 (08:59→20:21)
[2017-05-29] MEDS: LORAZEPAM 1 MG TABLET PO SCH ×3 (08:59→20:21)
[2017-05-29] MEDS: BUPRENORPHINE HCL 2 MG TAB.SUBL SL SCH ×3 (08:59→20:21)
[2017-05-29] MEDS: TOPIRAMATE 25 MG TABLET PO SCH ×2 (08:59→20:22)
[2017-05-29 10:51] LABS: HEPATITIS B SURFACE AG Negative (Negative)
[2017-05-29 12:00] VITALS: BP 118/67
[2017-05-29] MEDS: BACLOFEN 20 MG TABLET PO SCH ×2 (15:05→20:21)
[2017-05-29 16:00] VITALS: BP 120/62
[2017-05-29] MEDS: MIRALAX 17 GM POWD.PACK PO PRN (17:30)
--- NOTE | 2017-05-29 19:11 | NUR ---
End of Shift Endorsement given to nightshift nurse. Pt is a 31 y/o male admitted for Heroin, Ativan and meth dependence. Pt has been placed on a 5 day Subutex and 5 day Ativan taper. Pt is tolerating both tapers and moderately withdrawing AEB COWS 6 CIWA 4. Pt received PRN Miralax. Pt participated in groups and activities. Educated pt on diet and medication regimen. Intake: 1500ml, Void x3, BM x0. VS WNL. Full Code. PT is alert and oriented x4. Pt is in STABLE condition at this time. Remains compliant with medication and diet regimen. All needs have been met, All safety measures in place per hospital policy. Bed in lowest position, side rails up x2, call-light within reach. Will continue to monitor
--- NOTE | 2017-05-29 19:15 | NUR ---
Start of Shift Note: Patient is a 31 y/o male admitted 05/27/17 for Opiate and Benzo dependence. Patient reported using 3grams of heroin daily, Ativan 8mg daily and Unspecified amount of Methamphetamine daily for 3 weeks. Patient has PMHx of Anxiety, Depression, PTSD, Panic disorder, Insomnia, Bipolar disorder, Stomach Ulcers, Asthma and Hx of withdrawal induced seizures. Patient is on a regular diet with allergies to Morphine & Clindamycin with no known food and drug allergies noted. Full Code status. Skin intact. Pateint is on a 5-day Subutex and 5-day Ativan taper and tolerating well. Last COWS 6 CIWA 4. PRN Miralax given for constipation during day shift. Patient alert & oriented x4. No shortness of breath noted. Respiration even & unlabored. Abdomen soft & non-distended. Slight nausea noted. Patient complains of 8/10 generalized body aches, sweating, chills, restlessness, anxiety, constipation & mild headache. Hand tremors felt. Pt reported very light visual hallucinations. Pt stated "I'm seeing dots". Safety measures in place. Will continue to monitor patient.
[2017-05-29 20:00] VITALS: BP 128/82
[2017-05-29] MEDS: KETOROLAC TROMETHAMINE 30 MG INJ IM PRN (20:22)
[2017-05-29] MEDS: QUETIAPINE FUMARATE 200 MG TABLET PO SCH (20:22)
--- NOTE | 2017-05-29 20:22 | NUR ---
PRN Toradol & Milk of Magnesia Patient complains of 8/10 generalized body aches. Patient noted with facial grimacing and irritability d/t pain. Pt also complaining of constipation and requesting for a laxative. PRN Toradol IM administered at left deltoid and PRN Milk of Magnesia PO administered as ordered. Will continue to monitor patient.
[2017-05-29] MEDS ORDERED: LORAZEPAM 1 MG TABLET PO PRN ×2 (21:00)
--- NOTE | 2017-05-29 21:22 | NUR ---
PRN Reassessment Patient verbalized relief from body aches. Patient noted walking in the hallway with no facial grimacing noted. Pt stable at this time. Will continue to monitor patient.
[2017-05-29] MEDS: PRAZOSIN HCL 1 MG CAPSULE PO SCH (22:19)
[2017-05-29] MEDS: HYDROXYZINE PAMOATE 25 MG CAPSULE PO PRN (22:25)
[2017-05-29] MEDS: CLONIDINE HCL 0.1 MG TABLET PO PRN (22:26)
[2017-05-30] VITALS (7 sets, daily range): BP systolic 90–127; BP diastolic 56–76
[2017-05-30] MEDS: ACETAMINOPHEN 325 MG TABLET PO PRN ×3 (04:22→22:24)
--- NOTE | 2017-05-30 04:22 | NUR ---
PRN Ativan & Tylenol Patient noted with episode of confusion. Patient is alert & oriented x1. Patient presents with anxiety, agitation, hand tremors & moderate headache. Visual hallucinations noted. CIWA 17 noted at this time. Vitals taken. B/P 127/76, DC 152, RR 20, O2 sat @ 90% RA, Temp 100.4. PRN Ativan 2mg PO & Tylenol administered as ordered. O2 @ 2Lpm administered to maintain O2Sat above 95% Will continue to monitor patient.
--- NOTE | 2017-05-30 06:00 | NUR ---
PRN Reassessment Patient asleep in bed at this time. Unable assess CIWA d/t patient asleep. Temp 101.7 noted. HR 125 O2sat @ 96%. RR 20. Cooling measures continued. Will continue to monitor patient.
[2017-05-30] MEDS ORDERED: IV NS 1000 ML 1,000 ML IV PRN (07:15)
--- NOTE | 2017-05-30 07:42 | NUR ---
End of Shift Note: Pt continues on his Ativan and Subutex taper and tolerating well. Patient remained compliant with medications and treatment plan. Last CIWA 17. Pt received PRN Toradol for body aches, MOM for constipation, Clonidine & Vistaril for anxiety, Ativan 2mg for CIWA of 17 & Tylenol for fever. Last Temp noted was 100.6. Continue to give cooling measures. Pt also given O2 @ 2lpm via nasal cannula to maintain O2Sat @ 95%. Last COWS 5 CIWA 4 noted. Will continue to closely monitor patient. Patient slept for a total of 6 hours. Fluid intake 592 ml. Voided 2x with no bowel movement. All needs attended & met. Safety measures in place. Will continue to monitor patient.
[2017-05-30 08:25] LABS: BASOPHILS # (AUTO) 0.1 K/uL (0.0-8.0); BASOPHILS % (AUTO) 0.6 % (0.0-2.0); EOSINOPHILS # (AUTO) 0.2 K/uL (0.0-0.7); EOSINOPHILS % (AUTO) 2.3 % (0.0-7.0); HEMATOCRIT 42.2 % (36.7-47.1); HEMOGLOBIN 14.5 g/dL (12.5-16.3); LYMPHOCYTES # (AUTO) 1.3 K/uL (20.0-40.0); LYMPHOCYTES % (AUTO) 13.3 % (20.5-51.5); MEAN CORPUSCULAR HEMOGLOBIN 30.8 uug (23.8-33.4); MEAN CORPUSCULAR HGB CONC 35 g/dL (32.5-36.3); MEAN CORPUSCULAR VOLUME 89.3 fL (73.0-96.2); MONOCYTES # (AUTO) 0.5 K/uL (2.0-10.0); MONOCYTES % (AUTO) 5.6 % (0.0-11.0); NEUTROPHILS # (AUTO) 7.4 K/uL (1.8-8.9); NEUTROPHILS % (AUTO) 78.2 % (38.5-71.5); PLATELET COUNT (AUTO) 164 K/uL (152-348); RED BLOOD CELL COUNT(AUTO) 4.72 MIL/uL (4.06-5.63); WHITE BLOOD COUNT (AUTO) 9.5 K/uL (3.6-10.2)
[2017-05-30 08:33] LABS: CREATININE 1.1 mg/dL (0.6-1.3); MAGNESIUM 2.1 mg/dL (1.8-2.4); POTASSIUM 4.1 mmol/L (3.5-5.1)
[2017-05-30] MEDS: TOPIRAMATE 25 MG TABLET PO SCH ×2 (08:35→20:32)
[2017-05-30] MEDS: LORAZEPAM 1 MG TABLET PO SCH ×4 (08:36→20:32)
[2017-05-30] MEDS: GABAPENTIN 300 MG CAPSULE PO SCH ×2 (08:36→14:47)
[2017-05-30] MEDS: IBUPROFEN 600 MG TABLET PO PRN (08:36)
[2017-05-30] MEDS: BACLOFEN 20 MG TABLET PO SCH ×3 (08:37→20:32)
--- NOTE | 2017-05-30 08:43 | NUR ---
Report received from night staff, pt was febrile over night, orders they recieved were carried out iv was started to LFA #[id number] Steven, ivf running now , pt is sleeping afebrile, no distress.
[2017-05-30] MEDS ORDERED: BUPRENORPHINE HCL 2 MG TAB.SUBL SL SCH (09:00)
--- NOTE | 2017-05-30 10:12 | NUR ---
pt remaoins in bed sleeping no distress, ivf infusing as orders.
[2017-05-30] MEDS: LEVOFLOXACIN 750MG/D5W 750 MG in PREMIXED 1 EACH IV SCH (12:21)
--- NOTE | 2017-05-30 12:54 | NUR ---
Temp 100.3 orally tyllenol 650 mg po given, also cool wash cloth to forehead, pt c/o headache, encourage pos fluids, and was set up for lunch and eating lunch now, ivf infusing and was started on levaquin iv and was started, keep monitoring for s/o of distress.
[2017-05-30] MEDS: BUPRENORPHINE HCL 2 MG TAB.SUBL SL SCH ×2 (14:48→20:34)
--- NOTE | 2017-05-30 15:30 | NUR ---
temp 98.9 pt comfortable in bed no distress, ivf continue encourage pos fluids, taken all his meds.
[2017-05-30] MEDS ORDERED: IV NS 1000 ML 1,000 ML IV ONE (15:45)
[2017-05-30] MEDS: KETOROLAC TROMETHAMINE 30 MG INJ IM PRN (16:54)
[2017-05-30] MEDS ORDERED: AZITHROMYCIN IV 500 MG in IV DEXTROSE 5% 250 ML IV SCH (17:00)
--- NOTE | 2017-05-30 17:26 | NUR ---
Temps 98.2 orally, pt is up wandering in room, wanted to go smoke, explained to him that he will go later now he is getting ATB and is important for him to have them will keep monitoring pt,also was explained to him, that for now is better not to smoke d/t his s/s of pneumonia but he insist to smoke, md order nicotine chewing gum will see if he will acept.
--- NOTE | 2017-05-30 19:30 | NUR ---
Start of Shift Notes Received 31 y/o male px, admitted on 05/27/2017 for opiate/BZO/methamphetamine dependence. Alert and oriented x 4. Verbally responsive. Px is on 5-day Ativan and 5-day Subutex taper as ordered. Has past medical hx of anxiety, depression, PTSD, panic disorder, insomnia, bipolar disorder, stomach ulcers, seizures, asthma and surgeries to right wrist and rhinoplasty. Allergic to morphine, and Clindamycin. FULL CODE. Regular diet. On fall and seizure precautions.On IVF NS running at 125 ml/hr through a peripheral access line inserted on left arm. During the rounds at 1930, px complained of body aches 8/10, hot/cold sweats, heightened anxiety and stomach cramps. Encouraged increase oral fluid intake. We'll continue to monitor.
[2017-05-30] MEDS: QUETIAPINE FUMARATE 200 MG TABLET PO SCH (20:32)
[2017-05-30] MEDS: NICOTINE POLACRILEX 4 MG GUM-PK OF TEN BC PRN ×2 (20:33→22:23)
[2017-05-30] MEDS: PRAZOSIN HCL 1 MG CAPSULE PO SCH (20:33)
[2017-05-30] MEDS ORDERED: GABAPENTIN 300 MG CAPSULE PO SCH (21:00)
[2017-05-30] MEDS ORDERED: LORAZEPAM 1 MG TABLET PO ONE (22:15)
--- NOTE | 2017-05-30 22:24 | NUR ---
PRN meds Px is a bit agitated and restless. Px was not permitted to smoke due to his condition and take a shower due to the px is drowsy and has on going IVF NS running at 125 ml/hr. Nicotine gum given as PRN; Tylenol 325 mg/tab, 2 tabs given PO as PRN; and Ativan 1 mg/tab, 1 tab given 1 time dose PO. We'll continue to monitor.
--- NOTE | 2017-05-30 22:30 | NUR ---
IVF NS IVF NS 1 L hooked as a follow up running at 125 ml/hr connected to a peripheral line on left arm. We'll continue to monitor.
[2017-05-30] MEDS ORDERED: LORAZEPAM 1 MG TABLET ONE (22:38)
[2017-05-31] VITALS: BP 97/63
--- NOTE | 2017-05-31 | NUR ---
COWS and CIWA deferred COWS and CIWA deferred due to the px is asleep. To assess if the px is awake per doctor's order. Respirations are even and unlabored. We'll continue to monitor.
--- NOTE | 2017-05-31 02:00 | NUR ---
IV access temporary discontinued Px appears so confused. Px is disoriented to time and situation. Px pulled out his IV access inserted on left arm. Explained the importance of IV line access to the px but px is so drowsy and disoriented to restart a peripheral line. We'll try again explaining later to restart an IV line access.
[2017-05-31 04:00] VITALS: BP 116/63
[2017-05-31] MEDS: METHOCARBAMOL 750 MG TABLET PO PRN (04:49)
[2017-05-31] MEDS: CLONIDINE HCL 0.1 MG TABLET PO PRN (04:49)
[2017-05-31] MEDS: NICOTINE POLACRILEX 4 MG GUM-PK OF TEN BC PRN (04:49)
--- NOTE | 2017-05-31 04:49 | NUR ---
PRN meds Px was a bit restless and irritable due to patio and smoke restrictions. Robaxin 750 mg/tab and Clonidine 0.1 mg/tab, 1 tab given PO as PRN meds. Nicotine gum also given. We'll continue to monitor.
[2017-05-31] MEDS: ONDANSETRON ODT 4 MG TAB.RAPDIS SL PRN (05:26)
--- NOTE | 2017-05-31 05:26 | NUR ---
PRN Zofran SL Px had 2x episodes of emesis. Zofran 4 mg/tab, 1 tab given SLas PRN med. We'll continue to monitor.
[2017-05-31] MEDS: MAG HYDROX/AL HYDROX/SIMETH 30 ML LIQUID UDC PO PRN ×2 (06:06→21:26)
--- NOTE | 2017-05-31 06:10 | NUR ---
PRN med Px complained of heartburn and another episodes of emeses. Mylanta 30 ml given PO and Zofran 4mg/2 ml, 2 ml given IM on left deltoids. We'll continue to monitor.
--- NOTE | 2017-05-31 07:20 | NUR ---
End of Shift Notes 31 y/o male mely, admitted on 05/27/2017 for opiate/BZO/methamphetamine dependence. Px is on 5-day Ativan and 5-day Subutex taper as ordered. Has past medical hx of anxiety, depression, PTSD, panic disorder, insomnia, bipolar disorder, stomach ulcers, seizures, asthma and surgeries to right wrist and rhinoplasty. Allergic to morphine, and Clindamycin. Px is on FULL CODE, and Regular diet. During the shift, px complained of body aches 8/10, hot/cold sweats, heightened anxiety and stomach cramps. Nicotine gum given as PRN; Tylenol 325 mg/tab, 2 tabs given PO as PRN; and Ativan 1 mg/tab, 1 tab given 1 time dose PO. IVF NS 1 L hooked as a follow up running at 125 ml/hr connected to a peripheral line on left arm. Around 0200, Px appears so confused. Px is disoriented to time and situation. Px pulled out his IV access inserted on left arm. Explained the importance of IV line access to the px but px is so drowsy and disoriented to restart a peripheral line. We'll try again explaining later to restart an IV line access. At 0445, Px was a bit restless and irritable due to smoke restrictions. Robaxin 750 mg/tab and Clonidine 0.1 mg/tab, 1 tab given PO as PRN meds. Nicotine gum also given. At 0520, Px had 2x episodes of emesis. Zofran 4 mg/tab, 1 tab given SL as PRN med encouraged increase oral fluid intake. At 0610, Px complained of heartburn and another episodes of emeses. Mylanta 30 ml given PO and Zofran 4mg/2 ml, 2 ml given IM on left deltoids. Nausea improved and emesis stopped. Oral intake of 900 ml, voided 3x, No BM. Slept intermittently for 3 hours. Safety measures observed. Bed locked on lowest position, Side rails up 2x and call light within reach. We'll continue to monitor.
[2017-05-31 08:00] VITALS: BP 117/65
--- NOTE | 2017-05-31 08:00 | NUR ---
START OF SHIFT RECEIVED PT LAYING IN BED, A/O X3, RESPIRATIONS EQUAL AND EVEN. PT REPORTS SLIGHT NAUSEA, MILD BODY ACHES, ANXIETY, SWEATING AND RESTLESSNESS. PT SEEMED AGITATED, AND ASKED TO HAVE A PASS TO SMOKE. PT HAS BEEN ADVISED NOT TO SMOKE DUE TO PNEUMONIA AND EDUCATED ON SMOKING CESSATION. PT IS ON A 5 DAY ATIVAN AND 5 DAY SUBUTEX TAPER. PT SLEPT 3 HRS PER NIGHT NURSE. ENCOURAGED PT TO DRINK MORE FLUIDS TO FACILITATE THE DETOX PROCESS. SIDE RAILS UP X2, CALL LIGHT WITHIN REACH. SAFETY MEASURES TAKEN PLACE. WILL CONTINUE TO MONITOR.
[2017-05-31] MEDS: GABAPENTIN 300 MG CAPSULE PO SCH ×3 (08:06→21:00)
[2017-05-31] MEDS: LORAZEPAM 1 MG TABLET PO SCH ×3 (08:06→21:00)
[2017-05-31] MEDS: TOPIRAMATE 25 MG TABLET PO SCH ×2 (08:06→21:00)
[2017-05-31] MEDS: BACLOFEN 20 MG TABLET PO SCH ×3 (08:06→21:00)
[2017-05-31] MEDS: BUPRENORPHINE HCL 2 MG TAB.SUBL SL SCH ×3 (08:08→20:59)
--- NOTE | 2017-05-31 08:30 | NUR ---
IV ACCESS PT HAD TAKEN OUT IV ACCESS LAST NIGHT PER NIGHT NURSE. NEW ONE INSERTED AT 0830 ON R FA 22G. PATENT, DRESSING DRY AND INTACT.
[2017-05-31 12:00] VITALS: BP 111/65
[2017-05-31 12:10] LABS: EOSINOPHILS # (AUTO) 0.3 K/uL (0.0-0.7); MONOCYTES # (AUTO) 0.4 K/uL (2.0-10.0)
[2017-05-31] MEDS: LEVOFLOXACIN 750MG/D5W 750 MG in PREMIXED 1 EACH IV SCH (12:28)
[2017-05-31 13:08] LABS: BASOPHILS # (AUTO) 0.1 K/uL (0.0-8.0); BASOPHILS % (AUTO) 0.9 % (0.0-2.0); EOSINOPHILS % (AUTO) 3.9 % (0.0-7.0); LYMPHOCYTES % (AUTO) 24.3 % (20.5-51.5); MEAN CORPUSCULAR HEMOGLOBIN 30.4 uug (23.8-33.4); MEAN CORPUSCULAR HGB CONC 34 g/dL (32.5-36.3); MEAN CORPUSCULAR VOLUME 89.9 fL (73.0-96.2); MONOCYTES % (AUTO) 4.9 % (0.0-11.0); NEUTROPHILS # (AUTO) 5.3 K/uL (1.8-8.9); PLATELET COUNT (AUTO) 180 K/uL (152-348); RED BLOOD CELL COUNT(AUTO) 3.87 MIL/uL (4.06-5.63); WHITE BLOOD COUNT (AUTO) 8.1 K/uL (3.6-10.2)
[2017-05-31 13:09] LABS: HEMATOCRIT 34.8 % (36.7-47.1); HEMOGLOBIN 11.8 g/dL (12.5-16.3)
[2017-05-31 15:24] LABS: CREATININE 0.9 mg/dL (0.6-1.3); MAGNESIUM 1.8 mg/dL (1.8-2.4); POTASSIUM 3.6 mmol/L (3.5-5.1)
[2017-05-31 16:00] VITALS: BP 113/68
--- NOTE | 2017-05-31 19:02 | NUR ---
END OF SHIFT PT A/O X3, RESPIRATIONS EQUAL AND EVEN. PT REPORTS MILD BODY ACHES, ANXIETY, AND RESTLESSNESS. NO NAUSEA. PT SEEMED AGITATED, AND HAVE BEEN ASKING TO GO OUTSIDE DESPITE BEING TOLD HE IS ON PATIO RESTRICTION. PT HAS BEEN EDUCATED ON SMOKING CESSATION AND NOT TO SMOKE DUE TO PNEUMONIA. PT NEEDS FURTHER EDUCATION AND TEACHING. PT IS ON A 5 DAY ATIVAN AND 5 DAY SUBUTEX TAPER. LAST COWS 8, CIWA 7 AT 1600. NO PRN MEDS GIVEN. IV R AC 22G INSERTED ON SHIFT . ENCOURAGED PT TO DRINK MORE FLUIDS TO FACILITATE THE DETOX PROCESS. SIDE RAILS UP X2, CALL LIGHT WITHIN REACH. SAFETY MEASURES TAKEN PLACE. WILL GIVE ENDORSEMENT AND ALL PERTINENT DATA TO NETWORK OPERATIONS TECHNICIAN NURSE.
[2017-05-31 20:00] VITALS: BP 123/72
--- NOTE | 2017-05-31 20:00 | NUR ---
Start of Shift Pt is a 31 year old male admitted for Opiate/Benzo dependence, placed on 5 day Ativan and 5 day Subutex taper. Pt reported using Heroin 3g/daily, Ativan 8mg/daily and Meth unspecified/daily. PMH: anxiety, depression, PTSD, panic disorder, insomnia, bipolar disorder, stomach ulcers, hx of seizure r/t withdrawal, asthma and sx on right wrist & rhinoplasty. Pt reports allergies to morphine and clindamycin, fall/seizure precautions, regular diet and full code. Upon assessment, Pt has IV to right AC 22 g, site intact, no swelling/redness note flushing well. Upon assessment, pt is irritable, reports muscle aches/joint aches, skin is flushed/clammy, nose stuffy/teary eyes, stomach cramps, tremors felt, reports chills. Pt is on Levaquin for pneumonia. Medications due, Safety measures in place, call light within reach, side rails up x2, bed locked and in low position. Will continue to monitor.
[2017-05-31] MEDS: PRAZOSIN HCL 1 MG CAPSULE PO SCH (20:59)
[2017-05-31] MEDS: QUETIAPINE FUMARATE 200 MG TABLET PO SCH (21:00)
[2017-05-31] MEDS: KETOROLAC TROMETHAMINE 30 MG INJ IM PRN (21:27)
--- NOTE | 2017-05-31 21:27 | NUR ---
PRN Administration Pt reports pain in chest area, rated 10/10, requests relief. Toradol 30mg/1ml inj PRN and Maalox 30ml PRN administered as ordered. Safety measures in place, will continue to monitor.
--- NOTE | 2017-05-31 22:18 | NUR ---
PRN Administration Pt reports body aches, rated /. Toradol 30mg/1ml inj PRN administered. Safety measures in place, will continue to monitor. Addendum: 06/02/17 at 0143 by CARIDAD ANDREW RN WRONG DATE; 06/01/2017
--- NOTE | 2017-05-31 22:27 | NUR ---
PRN Reassessment Upon reassessment, pt rated pain 2/10 and subsiding. Maalox effective. Needs met, safety measures in place, will continue to monitor.
[2017-06-01] VITALS (7 sets, daily range): BP systolic 90–128; BP diastolic 55–79
--- NOTE | 2017-06-01 | NUR ---
CIWA/MASOOD deferred d/t sleep, to assess while awake as ordered. BP 128/79, pulse 106, resp 17, SpO2 98% room air, temp 98.2, no pain Safety measures in place, will continue to monitor.
[2017-06-01] MEDS: ACETAMINOPHEN 325 MG TABLET PO PRN (02:02)
[2017-06-01] MEDS: MAG HYDROX/AL HYDROX/SIMETH 30 ML LIQUID UDC PO PRN (02:02)
--- NOTE | 2017-06-01 02:02 | NUR ---
PRN Administration Pt reports "pain in my chest". Pt is noted to be burping. BP 109/64, pulse 112, SpO2 100% with O2 via NC 2LPM Tylenol 650mg PRN and Maalox 30ml PRN administered. Safety measures in place, will continue to monitor.
--- NOTE | 2017-06-01 03:02 | NUR ---
PRN Reassessment Pt is resting with eyes closed, pulse 108, SpO2 98% with O2 via NC 2LPM. Safety measures in place, will continue to monitor.
--- NOTE | 2017-06-01 07:00 | NUR ---
End of Shift Pt is a 31 year old male admitted for Opiate/Benzo dependence, placed on 5 day Ativan and 5 day Subutex taper. Pt reported using Heroin 3g/daily, Ativan 8mg/daily and Meth unspecified/daily. PMH: anxiety, depression, PTSD, panic disorder, insomnia, bipolar disorder, stomach ulcers, hx of seizure r/t withdrawal, asthma and sx on right wrist & rhinoplasty. Pt reports allergies to morphine and clindamycin, fall/seizure precautions, regular diet and full code. Pt has IV to right AC 22 g, site intact, no swelling/redness note flushing well. During shift, pt was irritable, reported muscle aches/joint aches, skin flushed/clammy, nose stuffy/teary eyes, stomach cramps, tremors felt, reports chills. Pt is on Levaquin for pneumonia. Scheduled taper medications administered, COWS 9 & CIWA 7. Toradol 30mg/1ml inj PRN, Tylenol 650mg PRN and Maalox 30ml x2 administered. Pt is on O2 via NC at 2.5 LMP. Pt slept for 7 hours, intake of 1650 ml PO, voids x2and stool x0. Safety measures in place, call light within reach, side rails up x2, bed locked and in low position. Endorsed to day shift nurse.
--- NOTE | 2017-06-01 07:30 | NUR ---
Start of Shift Pt is a 31 year old male admitted for Opiate/Benzo dependence, placed on 5 day Ativan and 5 day Subutex taper. PMH: anxiety, depression, PTSD, panic disorder, insomnia, bipolar disorder, stomach ulcers, hx of seizure r/t withdrawal, asthma and sx on right wrist & rhinoplasty. Pt reports allergies to morphine and clindamycin, fall/seizure precautions, regular diet and full code. Pt has IV to right AC 22 g, site intact, no swelling/redness note flushing well. Pt is on Levaquin for pneumonia. Pt's last COWS 9 & CIWA 7. Toradol 30mg/1ml Inj. PRN, Tylenol 650mg PRN and Maalox 30ml x2 administered. Pt is on O2 via NC at 2.5 LMP. Pt slept for 7 hours. Encouraged fluids to facilitate the detox process. Safety measures in place, call light within reach, side rails up x2, bed locked and in low position, will continue to monitor.
[2017-06-01] MEDS: TOPIRAMATE 25 MG TABLET PO SCH ×2 (08:40→20:14)
[2017-06-01] MEDS: BUPRENORPHINE HCL 2 MG TAB.SUBL SL SCH ×2 (08:40→20:15)
[2017-06-01] MEDS: GABAPENTIN 300 MG CAPSULE PO SCH ×3 (08:40→20:13)
[2017-06-01] MEDS: LORAZEPAM 1 MG TABLET PO SCH ×2 (08:41→20:14)
[2017-06-01] MEDS: BACLOFEN 20 MG TABLET PO SCH ×3 (08:41→20:14)
[2017-06-01] MEDS ORDERED: MAGNESIUM OXIDE 400 MG TABLET PO ONE (09:00)
[2017-06-01 11:12] LABS: BASOPHILS % (AUTO) 0.6 % (0.0-2.0); EOSINOPHILS # (AUTO) 0.4 K/uL (0.0-0.7); EOSINOPHILS % (AUTO) 5.1 % (0.0-7.0); HEMATOCRIT 32.4 % (36.7-47.1); HEMOGLOBIN 11.1 g/dL (12.5-16.3); LYMPHOCYTES # (AUTO) 1.7 K/uL (20.0-40.0); LYMPHOCYTES % (AUTO) 20.6 % (20.5-51.5); MEAN CORPUSCULAR HEMOGLOBIN 30.9 uug (23.8-33.4); MEAN CORPUSCULAR HGB CONC 34 g/dL (32.5-36.3); MEAN CORPUSCULAR VOLUME 89.7 fL (73.0-96.2); MONOCYTES # (AUTO) 0.5 K/uL (2.0-10.0); MONOCYTES % (AUTO) 5.4 % (0.0-11.0); NEUTROPHILS # (AUTO) 5.7 K/uL (1.8-8.9); NEUTROPHILS % (AUTO) 68.3 % (38.5-71.5); PLATELET COUNT (AUTO) 179 K/uL (152-348); RED BLOOD CELL COUNT(AUTO) 3.61 MIL/uL (4.06-5.63); WHITE BLOOD COUNT (AUTO) 8.4 K/uL (3.6-10.2)
[2017-06-01] MEDS: LEVOFLOXACIN 750MG/D5W 750 MG in PREMIXED 1 EACH IV SCH (12:04)
[2017-06-01 12:08] LABS: CREATININE 0.8 mg/dL (0.6-1.3); POTASSIUM 3.7 mmol/L (3.5-5.1)
[2017-06-01] MEDS: HYDROXYZINE PAMOATE 25 MG CAPSULE PO PRN (14:51)
[2017-06-01] MEDS: MIRALAX 17 GM POWD.PACK PO PRN (14:52)
--- NOTE | 2017-06-01 15:12 | NUR ---
Endorsement Pt endorsed to day shift nurse, pt is A&Ox4 in stable condition with no s/s of acute distress noted or verbalized, plan of care discussed all pertinent information given.
--- NOTE | 2017-06-01 19:02 | NUR ---
End of Shift Endorsed pt to nightshift nurse. Pt is a 31 y/o male. Removed IV per MD orders. Pt Is in stable condition at this time. Alert and oriented x4.
--- NOTE | 2017-06-01 20:00 | NUR ---
Start of Shift Pt is a 31 year old male admitted for Opiate/Benzo dependence, placed on 5 day Ativan and 5 day Subutex taper. Pt reported using Heroin 3g/daily, Ativan 8mg/daily and Meth unspecified/daily. PMH: anxiety, depression, PTSD, panic disorder, insomnia, bipolar disorder, stomach ulcers, hx of seizure r/t withdrawal, asthma and sx on right wrist & rhinoplasty. Pt reports allergies to morphine and clindamycin, fall/seizure precautions, regular diet and full code. Upon assessment, Pt reports muscle aches/joint aches, skin is flushed/clammy, stomach cramps, reports chills. Pt is on Levaquin for pneumonia. Respirations even/unlabored, denies n/v/d, bowel sounds active x4, abdomen soft. Medications due, Safety measures in place, call light within reach, side rails up x2, bed locked and in low position. Will continue to monitor.
[2017-06-01] MEDS: FLUTICASONE PROPIONATE 110 MCG INH SCH (20:12)
[2017-06-01] MEDS: PRAZOSIN HCL 1 MG CAPSULE PO SCH (20:13)
[2017-06-01] MEDS: QUETIAPINE FUMARATE 200 MG TABLET PO SCH (20:14)
[2017-06-01] MEDS: ALBUTEROL SULFATE 2.5 MG/ 0.5 ML NEBU NEB PRN (21:54)
[2017-06-01] MEDS: IPRATROPIUM BROMIDE 0.5 MG/2.5 ML NEBU NEB PRN (21:55)
[2017-06-01] MEDS: KETOROLAC TROMETHAMINE 30 MG INJ IM PRN (22:18)
--- NOTE | 2017-06-01 22:18 | NUR ---
PRN Administration Pt reports body aches, rated 10/10. Toradol 30mg/1ml inj PRN administered. Safety measures in place, will continue to monitor.
--- NOTE | 2017-06-01 23:18 | NUR ---
PRN Reassessment Pt reports subsiding body aches, net met. Safety measures in place, will continue to monitor.
[2017-06-02] VITALS: BP 116/56
--- NOTE | 2017-06-02 | NUR ---
WILWA/MASOOD deferred d/t sleep, to assess while awake as ordered. BP 116/56, pulse 106, resp 16, SpO2 99% room air, temp 98, no pain Safety measures in place, will continue to monitor.
[2017-06-02 04:00] VITALS: BP 121/73
--- NOTE | 2017-06-02 04:00 | NUR ---
CIWA/MASOOD deferred d/t sleep, to assess while awake as ordered. BP 121/73, pulse 111, resp 16, SpO2 98% room air, temp 98.2, no pain Safety measures in place, will continue to monitor.
[2017-06-02] MEDS: LEVOFLOXACIN 750 MG TABLET PO SCH (06:17)
--- NOTE | 2017-06-02 07:00 | NUR ---
End of Shift Pt is a 31 year old male admitted for Opiate/Benzo dependence, placed on 5 day Ativan and 5 day Subutex taper. Pt reported using Heroin 3g/daily, Ativan 8mg/daily and Meth unspecified/daily. PMH: anxiety, depression, PTSD, panic disorder, insomnia, bipolar disorder, stomach ulcers, hx of seizure r/t withdrawal, asthma and sx on right wrist & rhinoplasty. Pt reports allergies to morphine and clindamycin, fall/seizure precautions, regular diet and full code. During shift, Pt reported muscle aches/joint aches, skin is flushed/clammy, stomach cramps, reports chills scheduled taper medications administered, CIWA 7 and COWS 6. Toradol 30mg/1ml inj administered for body aches. Breathing teaching done by RT during shift. Pt is on Levaquin for pneumonia. Pt slept for 5 hours, intake of 855 ml PO, voids x2 and stool x0. Safety measures in place, call light within reach, side rails up x2, bed locked and in low position. Endorsed to day shift nurse.
--- NOTE | 2017-06-02 07:05 | NUR ---
Start of Shift Pt is a 31 year old male admitted for Opiate/Benzo dependence, placed on 5 day Ativan and 5 day Subutex taper. PMH: anxiety, depression, PTSD, panic disorder, insomnia, bipolar disorder, stomach ulcers, hx of seizure r/t withdrawal, asthma and sx on right wrist & rhinoplasty. Pt reports allergies to morphine and clindamycin, fall/seizure precautions, regular diet and full code. Pt no longer has an IV. Pt is on PO Levaquin for pneumonia. Pt's last COWS 6 & CIWA 7. PRN Toradol 30mg/1ml Inj given last night for pain and it was effective per boot and shoe repairman nurse. Pt is on O2 via NC at 2.5 LMP. Pt slept for 5 hours. Encouraged fluids to facilitate the detox process. Safety measures in place, call light within reach, side rails up x2, bed locked and in low position, will continue to monitor.
[2017-06-02 08:00] VITALS: BP 120/80
[2017-06-02] MEDS ORDERED: LORAZEPAM 1 MG TABLET PO SCH (09:00)
[2017-06-02] MEDS ORDERED: BUPRENORPHINE HCL 2 MG TAB.SUBL SL SCH (09:00)
[2017-06-02] MEDS: GABAPENTIN 300 MG CAPSULE PO SCH ×3 (09:10→20:56)
[2017-06-02] MEDS: BACLOFEN 20 MG TABLET PO SCH ×3 (09:10→20:56)
[2017-06-02] MEDS: FLUTICASONE PROPIONATE 110 MCG INH SCH ×2 (09:10→20:55)
[2017-06-02] MEDS: TOPIRAMATE 25 MG TABLET PO SCH ×2 (09:10→20:56)
[2017-06-02] MEDS: IPRATROPIUM BROMIDE 0.5 MG/2.5 ML NEBU NEB PRN ×2 (10:08→21:36)
[2017-06-02] MEDS: ALBUTEROL SULFATE 2.5 MG/ 0.5 ML NEBU NEB PRN ×2 (10:08→21:36)
[2017-06-02] MEDS ORDERED: GUAIFENESIN/DEXTROMETHORPHAN 5 ML UDC PO PRN ×2 (10:45→13:45)
[2017-06-02] MEDS ORDERED: IBUPROFEN 600 MG TABLET PO PRN (10:45)
[2017-06-02] MEDS ORDERED: IBUPROFEN 800 MG TABLET PO PRN (11:00)
[2017-06-02 12:00] VITALS: BP 119/73
[2017-06-02] MEDS: KETOROLAC TROMETHAMINE 30 MG INJ IM PRN (12:53)
--- NOTE | 2017-06-02 12:53 | NUR ---
PRN TORADOL Patient c/o of general body aches 02/07. Medicated pt with Toradol 30ml IM as order, injection site clean no bleeding no swelling noted. Will endorse to primary nurse to reassess the pt.
--- NOTE | 2017-06-02 13:53 | NUR ---
PRN Reassessment PRN medication effective, pt reported a decrease in pain to 4/10 all needs met will continue to monitor.
[2017-06-02] MEDS ORDERED: QUETIAPINE FUMARATE 100 MG TABLET PO STA (15:16)
[2017-06-02 16:00] VITALS: BP 123/79
[2017-06-02] MEDS ORDERED: NICO4GUM38 BC (17:19)
[2017-06-02] MEDS ORDERED: GABA-534 PO (17:19)
[2017-06-02] MEDS ORDERED: LEVO750T21 PO (17:19)
[2017-06-02] MEDS ORDERED: IBUP-1955 PO (17:19)
[2017-06-02] MEDS ORDERED: ALBU2.5V13 NEB (17:19)
[2017-06-02] MEDS ORDERED: HYDR-3895 PO (17:19)
[2017-06-02] MEDS ORDERED: CLON0.1T14 PO (17:19)
[2017-06-02] MEDS ORDERED: DICY20TA28 PO (17:19)
[2017-06-02] MEDS ORDERED: PANT40TA2 PO (17:19)
[2017-06-02] MEDS ORDERED: BACL20TA PO (17:19)
--- NOTE | 2017-06-02 19:05 | NUR ---
End Of Shift Pt is a 31 year old male admitted for Opiate/Benzo dependence, pt is full code regular diet on fall and seizure precautions Pt is allergic to morphine and clindomyacin. VS monitored closely q 4 hours. Withdrawal symptoms were closely monitored. Initial COWS 6 CIWA 7. Patient encouraged adequate PO fluid intake as tolerated. Patient presented with tremors and anxiety during the day. Last COWS 4 CIWA 4. Per patient, Subutex and Ativan have been helping him with his withdrawal symptoms. Pt ate all of his meals. Pt received PRN breathing treatment as well as a PRN Toradol, and robatussin shot IM medications noted to be effective. Patient encouraged to attend group therapies/sessions to learn new coping skills to recent relapse, patient denies SI/HI. Participated in group and therapy sessions. All needs met and attended
--- NOTE | 2017-06-02 19:10 | NUR ---
Start of shift note Received report from day shift nurse. Pt is a 31 yo male, A+Ox4, presenting to [facility] for Opiate/Benzo/Meth dependence. Pt has Allergies to Morphine and Clindamycin, is on Full code status, and on Regular diet. Pt is on Fall and Seizure precautions. Pt has HX of Anxiety, Depression, PTSD, Panic disorder, insomnia, bipolar disorder, stomach ulcers, Seizure, Asthma, PNA, Right wrist SX, and Rhinoplasty. Pt has completed 5 day Ativan and 5 day Subutex tapers, tolerated well, and is due for discharge tomorrow. No s/s of distress noted at this time. Respirations even and unlabored. Will continue to monitor.
[2017-06-02 20:24] VITALS: BP 135/79
[2017-06-02] MEDS: QUETIAPINE FUMARATE 200 MG TABLET PO SCH (20:56)
[2017-06-02] MEDS: PRAZOSIN HCL 1 MG CAPSULE PO SCH (20:56)
[2017-06-03 00:18] VITALS: BP 137/74
[2017-06-03 04:09] VITALS: BP 134/72
[2017-06-03] MEDS: LEVOFLOXACIN 750 MG TABLET PO SCH (06:19)
--- NOTE | 2017-06-03 06:53 | NUR ---
End of shift note Pt is a 31 yo male, A+Ox4, presenting to [facility] for Opiate/Benzo/Meth dependence. Pt has Allergies to Morphine and Clindamycin, is on Full code status, and on Regular diet. Pt is on Fall and Seizure precautions. Pt has HX of Anxiety, Depression, PTSD, Panic disorder, insomnia, bipolar disorder, stomach ulcers, Seizure, Asthma, PNA, Right wrist SX, and Rhinoplasty. Pt has completed 5 day Ativan and 5 day Subutex tapers, tolerated well, and is due for discharge today. Pt slept for a total of 7 HRS. Last COWS: 4 and Last CIWA: 2 @0400. No s/s of distress noted at this time. Respirations even and unlabored. Will endorse to day shift nurse.
--- NOTE | 2017-06-03 07:30 | NUR ---
START OF SHIFT NOTE Received report from night nurse, 31 year old male admitted for Opiate/Benzo dependence. Patient completed his 5 day Ativan and 5 day Subutex taper tolerated well. Patient has a PMH of anxiety, depression, PTSD, panic disorder, insomnia, bipolar disorder, stomach ulcers, hx of seizure r/t withdrawal, asthma and sx on right wrist & rhinoplasty. Per endorsement patient did not receive any PRN medication last CIWA-2, COWS-4, slept for 7 hours. Patient received awake, alert and oriented x4, Educated patient regarding plan of care for the day and medication regimen with good verbal understanding. Safety measures in place. call light with in reach, will continue to monitor.
[2017-06-03 08:00] VITALS: BP 117/73
[2017-06-03] MEDS: TOPIRAMATE 25 MG TABLET PO SCH (08:19)
[2017-06-03] MEDS: BACLOFEN 20 MG TABLET PO SCH (08:19)
[2017-06-03] MEDS: FLUTICASONE PROPIONATE 110 MCG INH SCH (08:19)
[2017-06-03] MEDS: GABAPENTIN 300 MG CAPSULE PO SCH (08:19)
[2017-06-03] MEDS: ONDANSETRON ODT 4 MG TAB.RAPDIS SL PRN (08:22)
--- NOTE | 2017-06-03 08:22 | NUR ---
PRN ZOFRAN Patient reported nausea no emesis. PRN Zofran 4 mg SL given as ordered. Will cont to monitor and reassess.
--- NOTE | 2017-06-03 08:52 | NUR ---
ZOFRAN REASSESSMENT Per patient Zofran was effective nausea improved.
--- NOTE | 2017-06-03 09:33 | NUR ---
DISCHARGE NOTE Patient is in stable condition. Vital signs WNL,Patient is alert oriented x4, Skin intact warm and dry tot touch. Patient denies any SI/HI ideations. All discharge paper work done signed and dated. Patient educated about discharge instructions, Pt verbalized understanding. Patient 's last COWS score was 2/CIWA-2. Patient discharged from [facility] on 06/03/17 at 0933. Patient left the building with all of his belongings and prescriptions, home medications that he bring it to the unit. has been contracted and notified of Pt's discharge.
== END 2017-06-03 09:33 | disposition other institution (70) | DRG 895 ==
LOC: SRC 19:31
PROVIDERS: ADMIT Internal Medicine; ATTEND Internal Medicine
PROC: HZ2ZZZZ Detoxification Services for Substance Abuse Treatment (ICD-10-PCS; principal; 2017-05-27)
PROC: HZ41ZZZ Group Counseling for Substance Abuse Treatment, Behavioral (ICD-10-PCS; 2017-05-28)
PROC: HZ31ZZZ Individual Counseling for Substance Abuse Treatment, Behavioral (ICD-10-PCS; 2017-05-29)
DX: F13.232 Sedative, hypnotic or anxiolytic dependence with withdrawal with perceptual disturbance (principal); F11.23 Opioid dependence with withdrawal; E87.6 Hypokalemia; F15.23 Other stimulant dependence with withdrawal; R65.20 Severe sepsis without septic shock; J18.9 Pneumonia, unspecified organism; A41.9 Sepsis, unspecified organism; J44.0 Chronic obstructive pulmonary disease with (acute) lower respiratory infection; F31.60 Bipolar disorder, current episode mixed, unspecified; Z59.1 Inadequate housing; Z83.3 Family history of diabetes mellitus; Z81.1 Family history of alcohol abuse and dependence; Z80.9 Family history of malignant neoplasm, unspecified; Z91.89 Other specified personal risk factors, not elsewhere classified; F17.210 Nicotine dependence, cigarettes, uncomplicated; F41.0 Panic disorder [episodic paroxysmal anxiety]; D64.9 Anemia, unspecified; E86.0 Dehydration; F12.10 Cannabis abuse, uncomplicated; R79.89 Other specified abnormal findings of blood chemistry; R73.9 Hyperglycemia, unspecified; Z79.899 Other long term (current) drug therapy
CPT/HCPCS: 36415; 70030-TC; 71010; 80307; 83735; 85025; 86580; 86592; 86705; 86803; 87040; 87070; 87340; 87400; 87806; 93005; 94640; A4663; G0480; J0456; J1885; J1956; J2405; J3535; J3590; J7060; Q0162; Q0163

== ENCOUNTER 2017-09-30 12:38 | Inpatient (IN) | payer OTHER ==
[~2017-09-30] VITALS: Ht 170.2 cm; Wt 86.2 kg
[~2017-09-30 12:38] MED LIST changes: +ALBU2.5V13 NEB; +CLON0.1T14 PO; +GABA-534 PO; -GABA-536 PO; +LEVO750T21 PO; +NICO4GUM38 BC; -SULF1TAB48 PO
[2017-09-30] MEDS ORDERED: BUPRENORPHINE HCL 2 MG TAB.SUBL SL PRN (13:15)
[2017-09-30] MEDS ORDERED: ACETAMINOPHEN 325 MG TABLET PO PRN (13:15)
[2017-09-30] MEDS ORDERED: LORAZEPAM 1 MG TABLET PO PRN ×2 (13:15)
[2017-09-30] MEDS ORDERED: LORAZEPAM 2 MG/1 ML VIAL IM PRN (13:15)
[2017-09-30] MEDS ORDERED: ONDANSETRON 4 MG/2 ML VIAL IM PRN (13:15)
[2017-09-30] MEDS ORDERED: LOPERAMIDE HCL 2 MG CAPSULE PO PRN ×2 (13:15)
[2017-09-30] MEDS ORDERED: MAG HYDROX/AL HYDROX/SIMETH 30 ML LIQUID UDC PO PRN (13:15)
[2017-09-30] MEDS ORDERED: MAGNESIUM HYDROXIDE 30 ML LIQUID UDC PO PRN (13:15)
[2017-09-30] MEDS ORDERED: DICYCLOMINE HCL 20 MG TABLET PO PRN (13:15)
[2017-09-30] MEDS ORDERED: MIRALAX 17 GM POWD.PACK PO PRN (13:15)
[2017-09-30] MEDS ORDERED: IBUPROFEN 600 MG TABLET PO PRN (13:15)
[2017-09-30] MEDS ORDERED: diphenhydrAMINE 50 MG CAPSULE PO PRN (13:15)
[2017-09-30] MEDS ORDERED: ONDANSETRON ODT 4 MG TAB.RAPDIS SL PRN (13:15)
[2017-09-30] MEDS ORDERED: CLONIDINE HCL 0.1 MG TABLET PO PRN (13:15)
[2017-09-30 13:47] LABS: *AMPHETAMINE, URINE POSITIVE (NEGATIVE); *BARBITURATE, URINE NEGATIVE (NEGATIVE); *CANNABINOID, URINE NEGATIVE (NEGATIVE); *COCCAINE, URINE NEGATIVE (NEGATIVE); *OPIATE, URINE POSITIVE (NEGATIVE); *PHENCYCLIDINE SCREEN,URINE NEGATIVE (NEGATIVE)
[2017-09-30] MEDS: LORAZEPAM 1 MG TABLET PO SCH ×3 (13:47→20:28)
[2017-09-30] MEDS: BUPRENORPHINE HCL 2 MG TAB.SUBL SL SCH ×3 (13:48→20:28)
[2017-09-30 16:00] VITALS: BP 118/76
[2017-09-30 20:00] VITALS: BP 127/74
[2017-09-30 20:20] LABS: BASOPHILS # (AUTO) 0.1 K/uL (0.0-8.0); BASOPHILS % (AUTO) 0.9 % (0.0-2.0); EOSINOPHILS # (AUTO) 0.3 K/uL (0.0-0.7); EOSINOPHILS % (AUTO) 3.1 % (0.0-7.0); HEMATOCRIT 46.7 % (36.7-47.1); HEMOGLOBIN 15.7 g/dL (12.5-16.3); LYMPHOCYTES # (AUTO) 2.4 K/uL (20.0-40.0); LYMPHOCYTES % (AUTO) 27.7 % (20.5-51.5); MEAN CORPUSCULAR HEMOGLOBIN 28.6 uug (23.8-33.4); MEAN CORPUSCULAR HGB CONC 34 g/dL (32.5-36.3); MEAN CORPUSCULAR VOLUME 84.9 fL (73.0-96.2); MONOCYTES # (AUTO) 0.6 K/uL (2.0-10.0); NEUTROPHILS # (AUTO) 5.4 K/uL (1.8-8.9); NEUTROPHILS % (AUTO) 61.3 % (38.5-71.5); PLATELET COUNT (AUTO) 252 K/uL (152-348); WHITE BLOOD COUNT (AUTO) 8.8 K/uL (3.6-10.2)
[2017-09-30 20:26] LABS: ETHANOL < 3 MG/DL (0-0)
[2017-09-30] MEDS: METHOCARBAMOL 750 MG TABLET PO PRN (20:28)
[2017-09-30] MEDS: GABAPENTIN 300 MG CAPSULE PO SCH (20:28)
[2017-09-30 20:31] LABS: ALANINE AMINOTRANSFERASE 16 U/L (16-63); ALKALINE PHOSPHATASE 98 U/L (50-136); ASPARTATE AMINOTRANSFERASE 6 U/L (15-37); BILIRUBIN,TOTAL 0.2 mg/dL (0.2-1.0); CARBON DIOXIDE 30 mmol/L (21-32); CHLORIDE 103 mmol/L (98-107); CREATININE 0.9 mg/dL (0.6-1.3); MAGNESIUM 2.3 mg/dL (1.8-2.4); POTASSIUM 3.9 mmol/L (3.5-5.1); TOTAL PROTEIN, SERUM 8.1 g/dL (6.4-8.2); UREA NITROGEN, BLOOD 18 mg/dL (7-18)
[2017-09-30 20:47] LABS: GLUCOSE 50 mg/dL (74-106)
[2017-09-30] MEDS ORDERED: OLANZAPINE 5 MG TABLET PO ONE (21:00)
[2017-09-30] MEDS ORDERED: QUETIAPINE FUMARATE 200 MG TABLET PO ONE (22:00)
[2017-10-01] VITALS: BP 127/81
[2017-10-01 04:00] VITALS: BP 116/56
[2017-10-01 08:30] VITALS: BP 109/60
[2017-10-01] MEDS ORDERED: TUBERCULIN,PURIF.PROT.DERIV. 5 TU/0.1 ML TEST ID ONE (09:00)
[2017-10-01] MEDS ORDERED: BLOOD SUGAR DIAGNOSTIC 1 EACH STRIP VI ONE (10:00)
[2017-10-01] MEDS: OLANZAPINE ZYDIS 5 MG TAB.RAPDIS PO SCH ×3 (10:09→16:23)
[2017-10-01] MEDS: TOPIRAMATE 25 MG TABLET PO SCH (10:09)
[2017-10-01] MEDS: LORAZEPAM 1 MG TABLET PO SCH ×3 (10:09→21:14)
[2017-10-01] MEDS: GABAPENTIN 300 MG CAPSULE PO SCH ×3 (10:09→21:14)
[2017-10-01] MEDS: BUPRENORPHINE HCL 2 MG TAB.SUBL SL SCH ×3 (10:10→21:16)
[2017-10-01 12:51] VITALS: BP 119/62
[2017-10-01 16:43] VITALS: BP 115/65
[2017-10-01 20:00] VITALS: BP 106/73
[2017-10-01] MEDS: QUETIAPINE FUMARATE 200 MG TABLET PO SCH (21:14)
[2017-10-01] MEDS: TOPIRAMATE 100 MG TABLET PO SCH (21:14)
[2017-10-01] MEDS: METHOCARBAMOL 750 MG TABLET PO PRN (21:14)
[2017-10-01] MEDS: CLONIDINE HCL 0.1 MG TABLET PO SCH (21:15)
[2017-10-02 08:00] VITALS: BP 113/77
[2017-10-02] MEDS ORDERED: HYDROXYZINE PAMOATE 25 MG CAPSULE PO PRN (09:00)
[2017-10-02] MEDS ORDERED: LORAZEPAM 1 MG TABLET PO SCH ×2 (09:00→21:00)
[2017-10-02] MEDS ORDERED: BUPRENORPHINE HCL 2 MG TAB.SUBL SL SCH (09:00)
[2017-10-02] MEDS: GABAPENTIN 300 MG CAPSULE PO SCH ×2 (09:43→15:23)
[2017-10-02] MEDS: TOPIRAMATE 25 MG TABLET PO SCH (09:44)
[2017-10-02] MEDS: CLONIDINE HCL 0.1 MG TABLET PO SCH ×2 (09:44→20:32)
[2017-10-02] MEDS: OLANZAPINE ZYDIS 5 MG TAB.RAPDIS PO SCH ×3 (09:44→17:40)
[2017-10-02 12:00] VITALS: BP 116/78
[2017-10-02 13:06] LABS: HEPATITIS B SURFACE AG Negative (Negative)
[2017-10-02] MEDS: LORAZEPAM 1 MG TABLET PO SCH ×2 (13:36→17:40)
[2017-10-02] MEDS ORDERED: DICYCLOMINE HCL 20 MG TABLET PO SCH (15:00)
[2017-10-02] MEDS: BUPRENORPHINE HCL 2 MG TAB.SUBL SL SCH ×2 (15:23→20:33)
[2017-10-02 16:00] VITALS: BP 115/68
[2017-10-02 20:00] VITALS: BP 125/72
[2017-10-02] MEDS: QUETIAPINE FUMARATE 200 MG TABLET PO SCH (20:32)
[2017-10-02] MEDS: BACLOFEN 10 MG TABLET PO SCH (20:32)
[2017-10-02] MEDS: TOPIRAMATE 100 MG TABLET PO SCH (20:32)
[2017-10-02] MEDS: METHOCARBAMOL 750 MG TABLET PO PRN (20:32)
[2017-10-02] MEDS ORDERED: GABAPENTIN 300 MG CAPSULE PO SCH (21:00)
[2017-10-03 08:20] VITALS: BP 125/70
[2017-10-03] MEDS: BACLOFEN 10 MG TABLET PO SCH ×3 (08:49→20:54)
[2017-10-03] MEDS: TOPIRAMATE 25 MG TABLET PO SCH (08:49)
[2017-10-03] MEDS: OLANZAPINE ZYDIS 5 MG TAB.RAPDIS PO SCH ×3 (08:49→16:29)
[2017-10-03] MEDS: CLONIDINE HCL 0.1 MG TABLET PO SCH ×3 (08:49→20:54)
[2017-10-03] MEDS: GABAPENTIN 300 MG CAPSULE PO SCH ×3 (08:49→20:54)
[2017-10-03] MEDS: BUPRENORPHINE HCL 2 MG TAB.SUBL SL SCH ×3 (08:50→20:54)
[2017-10-03] MEDS ORDERED: LORAZEPAM 1 MG TABLET PO SCH ×3 (09:00→21:00)
[2017-10-03] MEDS ORDERED: KETOROLAC TROMETHAMINE 30 MG INJ IM PRN (11:30)
[2017-10-03 13:54] VITALS: BP 118/81
[2017-10-03 17:00] VITALS: BP 124/65
[2017-10-03 20:00] VITALS: BP 115/77
[2017-10-03] MEDS: QUETIAPINE FUMARATE 200 MG TABLET PO SCH (20:54)
[2017-10-03] MEDS: TOPIRAMATE 100 MG TABLET PO SCH (20:54)
[2017-10-04 08:45] VITALS: BP 122/88
[2017-10-04] MEDS: OLANZAPINE ZYDIS 5 MG TAB.RAPDIS PO SCH ×3 (08:49→16:42)
[2017-10-04] MEDS: CLONIDINE HCL 0.1 MG TABLET PO SCH ×2 (08:50→14:14)
[2017-10-04] MEDS: LORAZEPAM 1 MG TABLET PO SCH ×3 (08:50→20:53)
[2017-10-04] MEDS: BACLOFEN 10 MG TABLET PO SCH ×3 (08:50→20:53)
[2017-10-04] MEDS: BUPRENORPHINE HCL 2 MG TAB.SUBL SL SCH ×2 (08:50→20:53)
[2017-10-04] MEDS: TOPIRAMATE 25 MG TABLET PO SCH (08:50)
[2017-10-04] MEDS: GABAPENTIN 300 MG CAPSULE PO SCH (08:50)
[2017-10-04] MEDS ORDERED: LORAZEPAM 1 MG TABLET PO SCH (09:00)
[2017-10-04] MEDS ORDERED: HYDROXYZINE PAMOATE 25 MG CAPSULE PO PRN (10:30)
[2017-10-04] MEDS ORDERED: IBUP-1955 PO (12:39)
[2017-10-04] MEDS ORDERED: DICY20TA28 PO (12:39)
[2017-10-04] MEDS ORDERED: HYDR-3895 PO (12:39)
[2017-10-04] MEDS ORDERED: METH-406 PO (12:39)
[2017-10-04] MEDS ORDERED: QUET200T PO (12:39)
[2017-10-04] MEDS ORDERED: CLON0.1T14 PO (12:39)
[2017-10-04] MEDS ORDERED: GABA-536 PO (12:39)
[2017-10-04 14:05] VITALS: BP 114/75
[2017-10-04] MEDS: GABAPENTIN 400 MG CAPSULE PO SCH ×2 (14:13→20:53)
[2017-10-04 16:49] VITALS: BP 120/70
[2017-10-04] MEDS: buPROPion XL 150 MG TAB.SR.24H PO SCH (17:31)
[2017-10-04 20:00] VITALS: BP 127/74
[2017-10-04] MEDS: QUETIAPINE FUMARATE 200 MG TABLET PO SCH (20:53)
[2017-10-04] MEDS: TOPIRAMATE 100 MG TABLET PO SCH (20:53)
[2017-10-04] MEDS: CLONIDINE HCL 0.2 MG TABLET PO SCH (20:53)
[2017-10-05 04:00] VITALS: BP 113/74
[2017-10-05 08:02] VITALS: BP 119/72
[2017-10-05] MEDS: GABAPENTIN 400 MG CAPSULE PO SCH ×3 (08:30→20:37)
[2017-10-05] MEDS: buPROPion XL 150 MG TAB.SR.24H PO SCH (08:30)
[2017-10-05] MEDS: TOPIRAMATE 25 MG TABLET PO SCH (08:30)
[2017-10-05] MEDS: BACLOFEN 10 MG TABLET PO SCH ×3 (08:31→20:35)
[2017-10-05] MEDS: CLONIDINE HCL 0.1 MG TABLET PO SCH ×2 (08:31→15:00)
[2017-10-05] MEDS: OLANZAPINE ZYDIS 5 MG TAB.RAPDIS PO SCH ×3 (08:32→17:08)
[2017-10-05] MEDS ORDERED: BUPRENORPHINE HCL 2 MG TAB.SUBL SL SCH (09:00)
[2017-10-05] MEDS ORDERED: LORAZEPAM 1 MG TABLET PO SCH (09:00)
[2017-10-05] MEDS ORDERED: BENZOCAINE ORAL CARE 12 ML BOTTLE MM PRN (11:30)
[2017-10-05 12:00] VITALS: BP 116/63
[2017-10-05 16:00] VITALS: BP 113/64
[2017-10-05 20:00] VITALS: BP 113/68
[2017-10-05] MEDS: QUETIAPINE FUMARATE 200 MG TABLET PO SCH (20:35)
[2017-10-05] MEDS: TOPIRAMATE 100 MG TABLET PO SCH (20:35)
[2017-10-05] MEDS: CLONIDINE HCL 0.2 MG TABLET PO SCH (20:36)
[2017-10-06 08:00] VITALS: BP 126/69
[2017-10-06 08:29] VITALS: BP 126/69
[2017-10-06] MEDS: OLANZAPINE ZYDIS 5 MG TAB.RAPDIS PO SCH (08:29)
[2017-10-06] MEDS: CLONIDINE HCL 0.1 MG TABLET PO SCH (08:29)
[2017-10-06] MEDS: buPROPion XL 150 MG TAB.SR.24H PO SCH (08:29)
[2017-10-06] MEDS: GABAPENTIN 400 MG CAPSULE PO SCH (08:30)
[2017-10-06] MEDS: BACLOFEN 10 MG TABLET PO SCH (08:30)
[2017-10-06] MEDS: TOPIRAMATE 25 MG TABLET PO SCH (08:30)
== END 2017-10-06 09:22 | disposition other institution (70) | DRG 895 ==
LOC: SRC 12:38
PROVIDERS: ADMIT Internal Medicine; ATTEND Internal Medicine
PROC: HZ2ZZZZ Detoxification Services for Substance Abuse Treatment (ICD-10-PCS; principal; 2017-09-30)
PROC: HZ41ZZZ Group Counseling for Substance Abuse Treatment, Behavioral (ICD-10-PCS; 2017-10-03)
PROC: HZ31ZZZ Individual Counseling for Substance Abuse Treatment, Behavioral (ICD-10-PCS; 2017-10-03)
DX: F11.23 Opioid dependence with withdrawal (principal); F31.62 Bipolar disorder, current episode mixed, moderate; E16.2 Hypoglycemia, unspecified; F17.210 Nicotine dependence, cigarettes, uncomplicated; Z88.1 Allergy status to other antibiotic agents; F13.232 Sedative, hypnotic or anxiolytic dependence with withdrawal with perceptual disturbance; Z88.6 Allergy status to analgesic agent; Z81.1 Family history of alcohol abuse and dependence; Z83.3 Family history of diabetes mellitus; Z80.9 Family history of malignant neoplasm, unspecified; F41.0 Panic disorder [episodic paroxysmal anxiety]; Z91.5 Personal history of self-harm; Z91.89 Other specified personal risk factors, not elsewhere classified; G47.00 Insomnia, unspecified; F15.93 Other stimulant use, unspecified with withdrawal; Z79.899 Other long term (current) drug therapy
CPT/HCPCS: 36415; 70030-TC; 80307; 80324; 80361; 83735; 84443; 85025; 86592; 86705; 86803; 87340; 87806; A9150; G0480; Q0162

== ENCOUNTER 2017-10-10 08:24 | Emergency (ER) | payer OTHER ==
[~2017-10-10] VITALS: Ht 170.2 cm; Wt 95.3 kg
[~2017-10-10 08:24] MED LIST changes: -BACL20TA PO; -DIPH50CA37 PO; -GABA-534 PO; +GABA-536 PO; -LEVO750T21 PO; +METH-406 PO; -NICO4GUM38 BC; -PANT40TA2 PO; -PRAZ1CAP2 PO
[2017-10-10] MEDS ORDERED: LORA2TAB PO (08:41)
--- NOTE | 2017-10-10 08:47 | NUR ---
Dr Crawford at the bedside for MSE.
[2017-10-10] MEDS ORDERED: ONDANSETRON ODT 4 MG TAB.RAPDIS ONE (08:55)
[2017-10-10] MEDS ORDERED: LORAZEPAM 1 MG TABLET ONE (08:55)
[2017-10-10] MEDS ORDERED: ONDANSETRON ODT 4 MG TAB.RAPDIS SL ONE (09:00)
[2017-10-10] MEDS ORDERED: LORAZEPAM 0.5 MG TABLET PO ONE (09:00)
[2017-10-10] MEDS ORDERED: PANTOPRAZOLE SODIUM 40 MG TABLET.DR PO ONE ×2 (09:28→09:30)
[2017-10-10] MEDS ORDERED: MORPHINE SULFATE 4 MG/1 ML DISP.SYRIN IM ONE (09:30)
[2017-10-10] MEDS ORDERED: diphenhydrAMINE 50 MG/1 ML VIAL IM ONE (09:30)
--- NOTE | 2017-10-10 09:30 | NUR ---
Pt C/O nausea and lower abd pain, MD aware.
[2017-10-10] MEDS ORDERED: MORPHINE SULFATE 4 MG/1 ML DISP.SYRIN ONE (09:35)
[2017-10-10] MEDS ORDERED: ONDANSETRON 4 MG/2 ML VIAL ONE (09:35)
[2017-10-10] MEDS ORDERED: diphenhydrAMINE 50 MG/1 ML VIAL ONE (09:40)
[2017-10-10] MEDS ORDERED: ONDANSETRON 4 MG/2 ML VIAL IM ONE (09:45)
[2017-10-10 10:06] LABS: BASOPHILS # (AUTO) 0.1 K/uL (0.0-8.0); BASOPHILS % (AUTO) 0.9 % (0.0-2.0); EOSINOPHILS # (AUTO) 0.1 K/uL (0.0-0.7); HEMOGLOBIN 14.8 g/dL (12.5-16.3); LYMPHOCYTES # (AUTO) 1.6 K/uL (20.0-40.0); LYMPHOCYTES % (AUTO) 22.4 % (20.5-51.5); MEAN CORPUSCULAR HEMOGLOBIN 28.1 uug (23.8-33.4); MEAN CORPUSCULAR HGB CONC 34 g/dL (32.5-36.3); MEAN CORPUSCULAR VOLUME 83.4 fL (73.0-96.2); MONOCYTES # (AUTO) 0.4 K/uL (2.0-10.0); MONOCYTES % (AUTO) 5.3 % (0.0-11.0); NEUTROPHILS # (AUTO) 5.1 K/uL (1.8-8.9); NEUTROPHILS % (AUTO) 70.4 % (38.5-71.5); PLATELET COUNT (AUTO) 249 K/uL (152-348); RED BLOOD CELL COUNT(AUTO) 5.27 MIL/uL (4.06-5.63); WHITE BLOOD COUNT (AUTO) 7.2 K/uL (3.6-10.2)
[2017-10-10 10:14] LABS: CREATININE 0.9 mg/dL (0.6-1.3); POTASSIUM 3.9 mmol/L (3.5-5.1)
--- NOTE | 2017-10-10 10:16 | NUR ---
Patient is resting comfortably in bed denies N/V, and anxiety.
--- NOTE | 2017-10-10 10:32 | NUR ---
Patient discharged to home in stable conditon. Written and verbal after care instructions given. Patient verbalizes understanding of instructions. Stressed follow up with pmd.
== END 2017-10-10 10:34 | disposition home or self-care (01) ==
LOC: ER 08:24
DX: K29.70 Gastritis, unspecified, without bleeding (principal); F17.210 Nicotine dependence, cigarettes, uncomplicated; Z88.1 Allergy status to other antibiotic agents; Z88.5 Allergy status to narcotic agent; Z79.899 Other long term (current) drug therapy; Z79.2 Long term (current) use of antibiotics; Z79.1 Long term (current) use of non-steroidal anti-inflammatories (NSAID)
CPT/HCPCS: 36415; 85025; A4663; J1200; J2270; J2405; Q0162

== ENCOUNTER 2017-10-12 16:45 | Emergency (ER) | payer OTHER ==
[~2017-10-12] VITALS: Ht 170.2 cm; Wt 99.8 kg
[~2017-10-12 16:45] MED LIST changes: +LORA2TAB PO
[2017-10-12] MEDS ORDERED: ONDA4TAB8 PO (16:57)
[2017-10-12] MEDS ORDERED: HYDR-548 PO (16:57)
--- NOTE | 2017-10-12 17:25 | NUR ---
Spoke with [facility] who state they will page Dr. Goodwin as Dr. Mcguire is requesting to speak with him.
[2017-10-12] MEDS ORDERED: MAG HYDROX/AL HYDROX/SIMETH 30 ML LIQUID UDC PO ONE (17:30)
[2017-10-12] MEDS ORDERED: IV NORMAL SALINE 1000 ML BAG IV ONE (17:30)
[2017-10-12] MEDS ORDERED: PANTOPRAZOLE SODIUM 40 MG VIAL IV ONE (17:30)
--- NOTE | 2017-10-12 17:31 | NUR ---
Pt refused blood draw.
--- NOTE | 2017-10-12 17:35 | NUR ---
Pt refused CT.
--- NOTE | 2017-10-12 17:38 | NUR ---
Dr. Shayla Gutierrez notified.
== END 2017-10-12 17:41 | disposition left against medical advice (07) ==
LOC: ER 16:47
DX: R10.32 Left lower quadrant pain (principal); F17.210 Nicotine dependence, cigarettes, uncomplicated; F11.10 Opioid abuse, uncomplicated; Z88.1 Allergy status to other antibiotic agents; Z88.5 Allergy status to narcotic agent; Z79.891 Long term (current) use of opiate analgesic; Z76.5 Malingerer [conscious simulation]; Z79.1 Long term (current) use of non-steroidal anti-inflammatories (NSAID); Z79.899 Other long term (current) drug therapy
CPT/HCPCS: A4663

== ENCOUNTER 2017-11-22 09:25 | Emergency (ER) | payer OTHER ==
[~2017-11-22] VITALS: Ht 170.2 cm; Wt 99.8 kg
[~2017-11-22 09:25] MED LIST changes: -ALBU2.5V13 NEB; -BECL8.7H NS; -CLON0.1T14 PO; -DICY20TA28 PO; -GABA-536 PO; -HYDR-3895 PO; +HYDR-548 PO; -IBUP-1955 PO; -METH-406 PO; -OLAN5TAB6 PO; +ONDA4TAB8 PO; -QUET200T PO; -TOPI100T PO; -TOPI25TA PO
[2017-11-22] MEDS ORDERED: ONDANSETRON 4 MG/2 ML VIAL IV ONE (10:00)
[2017-11-22] MEDS ORDERED: PANTOPRAZOLE SODIUM 40 MG VIAL IV ONE (10:00)
[2017-11-22] MEDS ORDERED: IV NORMAL SALINE 1000 ML BAG IV ONE (10:00)
[2017-11-22 10:05] LABS: *BILIRUBIN,URIN NEGATIVE (NEGATIVE); *BLOOD, URINE NEGATIVE (NEGATIVE); *CLARITY,URINE CLEAR (CLEAR); *COLOR,URINE YELLOW (YELLOW); *KETONES,URINE NEGATIVE (NEGATIVE); *PROTEIN,URINE NEGATIVE (NEGATIVE); *UROBILINOGEN,URINE 0.2 E.U./dl (NORMAL); LEUKOCYTE ESTERASE ,URINE NEGATIVE (NEGATIVE); NITRITE, URINE NEGATIVE (NEGATIVE); UGLUCOSE NEGATIVE (NEGATIVE)
--- NOTE | 2017-11-22 10:08 | NUR ---
PATIENT IS AWAKE AND ALERT, ORIENTED X4. DENIES PAIN. NO VOMITING AT THIS TIME. NO DIAPHORESIS. STATES HE WANTS "ATIVAN" NOW. STATES HE DOES NOT WANT AN IV OR BLOOD DRAWN. DR FITCH NOTIFIED. DR FITCH WENT INTO THE ROOM AND SPOKE TO PATIENT WHO AGREED TO HAVE HIS BLOOD DRAWN ONLY. 2 STAFF MEMBERS FROM [facility] WERE HERE SPEAKING TO PATIENT WHO STATES HE WANTS TO BE ADMITTED TO [facility] AGAIN.
[2017-11-22 10:17] LABS: BACTERIA,URINE NONE SEEN /HPF (NONE SEEN); CALCIUM OXALATE CRYSTALS,UR FEW /HPF (NONE SEEN); MUCUS,URINE FEW /LPF (0-FEW); RBC,URINE 0-3 /HPF (0-3); SQUAMOUS EPITHELIAL CELL,UR FEW /HPF (NONE SEEN); WBC,URINE 0-3 /HPF (0-3)
[2017-11-22 10:31] LABS: BASOPHILS # (AUTO) 0.1 K/uL (0.0-8.0); EOSINOPHILS # (AUTO) 0.1 K/uL (0.0-0.7); EOSINOPHILS % (AUTO) 1.5 % (0.0-7.0); HEMATOCRIT 45.1 % (36.7-47.1); HEMOGLOBIN 15.5 g/dL (12.5-16.3); LYMPHOCYTES # (AUTO) 1.4 K/uL (20.0-40.0); LYMPHOCYTES % (AUTO) 21.3 % (20.5-51.5); MEAN CORPUSCULAR HEMOGLOBIN 29.6 uug (23.8-33.4); MEAN CORPUSCULAR HGB CONC 34 g/dL (32.5-36.3); MEAN CORPUSCULAR VOLUME 86.2 fL (73.0-96.2); MONOCYTES # (AUTO) 0.5 K/uL (2.0-10.0); MONOCYTES % (AUTO) 7.1 % (0.0-11.0); NEUTROPHILS # (AUTO) 4.7 K/uL (1.8-8.9); NEUTROPHILS % (AUTO) 69.1 % (38.5-71.5); PLATELET COUNT (AUTO) 157 K/uL (152-348); RED BLOOD CELL COUNT(AUTO) 5.24 MIL/uL (4.06-5.63); WHITE BLOOD COUNT (AUTO) 6.8 K/uL (3.6-10.2)
[2017-11-22 10:34] LABS: POTASSIUM 3.9 mmol/L (3.5-5.1)
[2017-11-22 10:40] LABS: BILIRUBIN,DIRECT 0.1 mg/dL (0.0-0.2); BILIRUBIN,TOTAL 0.4 mg/dL (0.2-1.0); TOTAL PROTEIN, SERUM 8.1 g/dL (6.4-8.2)
--- NOTE | 2017-11-22 11:01 | NUR ---
AWAITING FOR [facility] TO RETURN TO ER TO ACCEPT OR NOT ACCEPT THIS PATIENT TO THEIR CARE. PATIENT IS AWAKE AND ALERT WITH NO NEW COMPLAINTS. NO VOMITING NOTED.
--- NOTE | 2017-11-22 12:10 | NUR ---
PATIENT WENT OUTSIDE FOR A FEW MINUTES TO SMOKE A CIGARETTE. WE ARE STILL WAITING FOR [facility] TO RETURN TO ER FOR RE-EVALUATION PER DR FITCH.
--- NOTE | 2017-11-22 13:00 | NUR ---
[facility] STAFF CALLED ME AND STATED THEY WILL NOT ACCEPT THIS PATIENT BECAUSE THEY LOOKED AT HIS PAST REORD FROM PREVIOUS ADMISSION AND STATED "HE EXPOSED HIMSELF TO STAFF AND DIVERTED MEDS" THEREFORE THEY WILL NOT ACCEPT HIM. DR FITCH NOTIFIED. I THEN TOLD PATIENT EXACTLY WHAT [facility] TOLD ME AND DISCHARGED HIM WITH DC INSTRUCTIONS AND A RX FOR ZOFRAN ODT AND TOLD HIM TO FOLLOW UP WITH HIS MEDICAL TEAM. PATIENT STATED HE UNDERSTANDS AND LEFT THE ER WITHOUT INCIDENT.
== END 2017-11-22 13:05 | disposition home or self-care (01) ==
LOC: ER 09:27
DX: Z76.5 Malingerer [conscious simulation] (principal); F31.9 Bipolar disorder, unspecified; F41.9 Anxiety disorder, unspecified; F17.210 Nicotine dependence, cigarettes, uncomplicated; F15.10 Other stimulant abuse, uncomplicated; Z88.5 Allergy status to narcotic agent; Z79.891 Long term (current) use of opiate analgesic; Z79.899 Other long term (current) drug therapy
CPT/HCPCS: 36415; 80048; 80076; 81001; 83690; 85025; 99284; A4663; J7030

== ENCOUNTER 2022-05-01 13:02 | Emergency (ER) | payer OTHER ==
[~2022-05-01] VITALS: Ht 170.2 cm; Wt 97.5 kg
[~2022-05-01 13:02] MED LIST changes: +HYDR-4354 PO; -HYDR-548 PO
[2022-05-01] MEDS ORDERED: LORAZEPAM 0.5 MG TABLET PO ONE ×2 (13:15→14:15)
[2022-05-01] MEDS ORDERED: LORAZEPAM 1 MG TABLET ONE ×2 (13:20→14:18)
[2022-05-01] MEDS ORDERED: OXYCODONE HCL 5 MG TABLET ONE (13:24)
[2022-05-01] MEDS ORDERED: OXYCODONE HCL 5 MG TABLET PO ONE (13:30)
[2022-05-01] MEDS ORDERED: MORPHINE SULFATE 4 MG/1 ML DISP.SYRIN IM ONE (14:15)
[2022-05-01] MEDS ORDERED: MORPHINE SULFATE 2 MG/1 ML DISP.SYRIN ONE (14:19)
[2022-05-01] MEDS ORDERED: MORPHINE SULFATE 4 MG/1 ML DISP.SYRIN ONE (14:19)
[2022-05-01] MEDS ORDERED: ALPR2TAB7 PO (14:22)
[2022-05-01] MEDS ORDERED: AMPH10CA3 PO (14:22)
[2022-05-01] MEDS ORDERED: OXYC10TA59 PO (14:22)
[2022-05-01 14:54] VITALS: BP 130/66
--- NOTE | 2022-05-01 14:54 | NUR ---
Patient discharged to home in stable condition. Written and verbal after care instructions given. Patient verbalizes understanding of instructions. Stressed follow up or return to ER for worsening s/s.
[2022-05-01] MEDS ORDERED: PAXIL (15:06)
[2022-05-01] MEDS ORDERED: MELA3TAB41 PO (15:06)
[2022-05-01] MEDS ORDERED: BENZ2TAB7 PO (15:06)
[2022-05-01] MEDS ORDERED: QUET100T PO (15:06)
[2022-05-01] MEDS ORDERED: DIVA-78 PO (15:06)
[2022-05-01] MEDS ORDERED: LORA2TAB95 PO (15:06)
[2022-05-01] MEDS ORDERED: QUET300T2 PO (15:06)
[2022-05-01] MEDS ORDERED: METO-295 PO (15:06)
== END 2022-05-01 14:55 | disposition home or self-care (01) ==
LOC: ER 13:05
DX: M25.571 Pain in right ankle and joints of right foot (principal); M25.531 Pain in right wrist; F11.20 Opioid dependence, uncomplicated; F41.9 Anxiety disorder, unspecified; Z88.1 Allergy status to other antibiotic agents; Z88.5 Allergy status to narcotic agent; Z88.8 Allergy status to other drugs, medicaments and biological substances; F31.9 Bipolar disorder, unspecified; Z79.899 Other long term (current) drug therapy; Z87.11 Personal history of peptic ulcer disease
CPT/HCPCS: 99284; 96372; J2270 ×2; A4663